=== PATIENT | male | born 1950 | race Caucasian/White ===

== ENCOUNTER 2020-02-27 17:19 | Inpatient (IN) | payer MEDICARE, OTHER, SELFPAY ==
[2020-02-27] VITALS (57 sets, daily range): BP systolic 65–131; BP diastolic 46–72; PULSE 70–87; RESP 9–22; TEMP 36.4; O2SAT 82–100; BMI 24.4
--- NOTE | 2020-02-27 | XRR_ITS ---
PROCEDURE INFORMATION: Exam: XR Chest, 2 Views Exam date and time: 02/28/2020 7:55 AM Age: 69 years old Clinical indication: Device placement; Patient HX: Chest tube-thoracic vent. Some bleeding around insertion; Additional info: Pneumothorax TECHNIQUE: Imaging protocol: XR of the chest Views: Portable recumbent coned right AP chest (excluding the left chest), and cross-table lateral views. COMPARISON: CR (CHEST, ) 02/27/2020 9:54 PM FINDINGS: Lungs: Increased small right lateral apical pleural effusion/hemothorax. Stable right upper lobe consolidation. Pleural space: Small anterior right pneumothorax. Heart/Mediastinum: Unremarkable as visualized. Bones/joints: Right thoracic vent stable position. XR/XR chest 2V* [id number] IMPRESSION: 1. Increased small right lateral apical pleural effusion/hemothorax. 2. Small anterior right pneumothorax. 3. Stable right upper lobe consolidation.
--- NOTE | 2020-02-27 17:19 | XRR_ITS ---
PROCEDURE INFORMATION: Exam: XR Chest, 1 View Exam date and time: 02/27/2020 5:42 PM Age: 69 years old Clinical indication: Device placement; Ett placement (vent status); Additional info: Intubated TECHNIQUE: Imaging protocol: XR of the chest Views: 1 view. COMPARISON: No relevant prior studies available. FINDINGS: Tubes, catheters and devices: Endotracheal tube terminates slightly above the gila. NG tube tip is not visualized appears to course below the diaphragm. Lungs: Bilateral airspace opacities, greatest in the right upper lobe. Pleural space: Small right pneumothorax. Heart/Mediastinum: No cardiomegaly. Bones/joints: No acute fracture. XR/XR chest 1V portable [id number] IMPRESSION: 1. Small right pneumothorax. 2. Right upper lobe atelectasis or other infiltrate.
[2020-02-27 17:25] LABS: Arterial Blood Gas Hematocrit 41.7 % (42-52); Base Excess ABG -15.6 mmol/L (-2.0-2.0); Blood Gas Allen Test Pos; Blood Gas Operator Identificat CAK; Blood Gas Sample Site Radial, left; Blood Gas Sample Type Arterial; HCO3 ABG 11.5 mmol/L (22-26); Oxygen Device VENT
[2020-02-27 17:26] LABS: ABG PH Result 7.18 (7.35-7.45)
[2020-02-27 17:30] LABS: Basophils # 0.1 10^3/uL (0.0-0.1); Basophils % 0.4 %; Eosinophils # 0.2 10^3/uL (0.0-0.8); Eosinophils % 0.6 %; Hematocrit 42.1 % (42.0-52.0); Hemoglobin 13.2 g/dL (11.7-16.6); Lymphocytes # 7.1 10^3/uL (0.8-4.8); Lymphocytes % 26.6 %; Mean Corpuscular HGB Conc 31.4 g/dL (30.0-36.0); Mean Corpuscular Hemoglobin 31.4 pg (28.0-34.0); Mean Platelet Volume 10.3 fL (7.4-10.4); Monocytes # 1.3 10^3/uL (0.2-0.9); Monocytes % 4.7 %; Neutrophils % 63.3 %; Nucleated Red Blood Cells % 0.1 %; Platelet Count 241 10^3/cmm (130-400); Red Blood Count 4.21 10^6/uL (4.1-5.3); Red Cell Distribution Width 12.1 % (12.1-15.1); White Blood Count 26.5 10^3/uL (4.0-10.0)
--- NOTE | 2020-02-27 17:41 | CTR_ITS ---
PROCEDURE INFORMATION: Exam: CT Head Without Contrast Exam date and time: 02/27/2020 5:44 PM Age: 69 years old Clinical indication: Other: Cardiac arrest/ cpr/ PT intubated; Additional info: Head injury TECHNIQUE: Imaging protocol: Computed tomography of the head without contrast. Sagittal and coronal reformatted images were created and reviewed. Radiation optimization: All CT scans at this facility use at least one of these dose optimization techniques: automated exposure control; mA and/or kV adjustment per patient size (includes targeted exams where dose is matched to clinical indication); or iterative reconstruction. COMPARISON: No relevant prior studies available. RADIATION DOSE METRICS: Total DLP (mGy-cm): 885.91 FINDINGS: Brain: No acute intracranial hemorrhage. No acute infarct. No intra-axial or extra-axial masses. Whiteside-white matter differentiation is preserved. No cerebral edema. No extra-axial fluid collections. No midline shift. No evidence for Chiari 1 malformation. Mild cerebral volume loss. Ventricles: No hydrocephalus. Bones/joints: Moderate right nasal septal deviation. Sinuses: Unremarkable as visualized. Mastoid air cells: Unremarkable as visualized. Orbits: Globes and lenses, extraocular muscles, and optic nerves are intact bilaterally. No acute intraorbital abnormality. Soft tissues: No acute abnormality of the extracranial soft tissues. CT/CT head wo con* [id number] IMPRESSION: 1. No acute abnormality of the brain. 2. Incidental/nonacute findings are listed in the report. Radiation Dose CTDIVOL = (mGy): DLP = 885.91 (mGy-cm)
[2020-02-27 17:56] LABS: Alanine Aminotransferase 79 U/L (0-41); Albumin Level 3.5 g/dL (3.5-5.2); Alkaline Phosphatase 133 IU/L (40-130); Blood Urea Nitrogen 16 mg/dL (8-23); Calcium 8.7 mg/dL (8.5-10.5); Carbon Dioxide 16 mmol/L (22-29); Chloride 105 mmol/L (98-107); Globulin 1.9 g/dL (1.3-4.6); Glucose 269 mg/dL (65-115); Magnesium 2.2 mg/dL (1.7-2.3); Osmolality Calculated 296 mOsm/kg (285-295); Sodium 140 mmol/L (136-145); Total Bilirubin 0.5 mg/dL (0.15-1.2); Total Protein 5.4 g/dL (6.6-8.7)
[2020-02-27 18:01] LABS: Anion Gap 22.5 (5-19); Aspartate Amino Transferase 117 U/L (0-40)
[2020-02-27 18:02] LABS: Potassium 3.5 mmol/L (3.5-5.1); Troponin(5th) Baseline 45 ng/L (0-15)
[2020-02-27 18:04] LABS: Slide Review Slide Review Perform
--- NOTE | 2020-02-27 18:05 | XACV_ITS ---
Exam Room: [facility] Ht: 183 cm Wt: 85 kg BSA: 2.08 m2 Gender: Male : 1950 Exam Priority: Routine Procedure(s): Procedure Description: Diagnostic procedure Procedure Description: PCI procedure Procedure Description: Left Heart Catheterization Procedure Description: Drug Eluting Coronary Stent Procedure Description: PTCA Procedure Description: Miscellaneous Procedure Description: Temporary Pacemaker Insertion Diagnostic Findings LM has 0% stenosis. LAD has 0% stenosis. CX has 0% stenosis. Distal Right Coronary Artery: Severe 100% stenosis, AIME: 0 flow. Coronary angiography shows right dominance. Interventional Findings Distal Right Coronary Artery: 100% stenosis treated with Unknown. 0% residual stenosis, AIME: 3 flow. Conclusions There is severe coronary artery disease with one vessel disease. Distal Right Coronary Artery was treated with . 69-year-old male with unknown downtime was brought in with V. fib arrest resuscitated and complicated with complete heart block paced externally, due to suspicion of head bleed his head was scan which did not show acute bleed, he was intubated and resuscitated in the ER. He was taken emergently to the [facility]. Temporary pacemaker was inserted. He was found to have 100% thrombotically occluded distal large size and caliber dominant RCA. It was treated with multiple balloon angioplasty and 2 overlapping 3.5 x15 and 3.5 x 12 mm drug-eluting stents postdilated at high YAIMA of 16 mmHg. Excellent angiographic result was achieved. AIME-3 flow was established at the end of the case. Through right groin approach after proper sterilization right common femoral vein was accessed. Temporary pacemaker was placed in the right ventricle. Patient was paced at heart rate of 80 bpm asynchronous with output of 10. Good capture was confirmed. 1. Left main normal2. LAD has luminal irregularity3. LCx is nondominant with luminal irregularity4. RCA is large in size and caliber dominant vessel with 100% thrombotically occluded in the distal segment before bifurcation it is the culprit vessel. Recommendations 1-Return to inpatient for close monitoring and routine cath care 2-Risk factor modification for secondary prevention 3-Statin and aspirin 81 mg life--long, if tolerated 4-Patient was pre-loaded with 600 mg of Plavix, continue Plavix 75mg p.o. daily for at least one year. We will assess at the end of one year again to continue if further or not 5-Continue optimal medical management, neurological assessment as per medicine, condition guarded 6-Follow up with Dr. Gilbert in four weeks and your primary care in 10 days . Interventional RX Recommendation: PCI w/o planned CABG Diagnostic RX Recommendation: PCI w/o planned CABG Clinical Evaluation EBL: 5mL-10mL Procedural Details Pre-Procedure Time Out. Identified patient by full name and date of as verbalized by the patient/guarantor. If H&P is completed, is and addenduem needed: N/A Emergent; Informed Consent not obtained due to time critical life threat; If yes, is the addendum complete: N/A Emergent; Informed Consent not obtained due to time critical life threat. Does the consent match the physician's order: N/A Emergent; Informed Consent not obtained due to time critical life threat. Accurate & Complete Informed Consent: N/A Emergent; Informed Consent not obtained due to time critical life threat. Inpatient/Outpatient History & Physical on Chart: N/A Emergent; Informed Consent not obtained due to time critical life threat. Visualize and Verify Site with Patient/Guarantor: N/A. Relevant Radiology Images available: N/A Emergent; Informed Consent not obtained due to time critical life threat. Physician notified. Equipment: 6F - Femoral. Cardiac Cath Pack. ACIST Manifold Kit Model BT 2000. Heparinized Saline (2 units/mL), 1000 mL bag. Kit, Micropuncture. Procedure started. bilateral groins was prepped with chloroprep then draped in the usual sterile fashion. Baseline sample Acquired. HR: 70 BPM. Patient arrived to concrete laborer on a ventilator and will be managed by respiratiory. pt being paced. Physician arrived. Physician scrubbed in. Immediate Pre-Procedure Time Out. Correct Patient: Yes; Correct Procedure: Yes; Correct Site: Yes; Correct Patient Position: Yes; Correct Supplies: Yes; Dried Flammable Prep: N/A Emergent; Informed Consent not obtained due to time critical life threat; Blood Products Available: N/A Emergent; Informed Consent not obtained due to time critical life threat;. Lidocaine 1% infiltrated to the right groin. pt on 75mcg fentanyl I.V. from ed. Venous access obtained with a micropuncture set. 6FR arrow sheath in venous access. temp pacemaker leads inserted. rate 80 output 10 sensitivity async. Marianne Celaya, FABRIC WORKER FOREMAN was relieved by RT Norbert as monitoring person. Arterial access obtained with micropuncture set. 6 swedish JR 4 SH guide catheter was inserted over the wire. Wheeler guidewire was advanced through the guide catheter to lesion in the distal RCA. Inflation number : 1 A AB TREK 2.50X12 RX BALLOON was prepped and advanced across the Dist RCA , then inflated to 8 YAIMA for 0:18 seconds. Inflation number: 2 The AB TREK 2.50X12 RX BALLOON was reinflated across the Dist RCA, to 14 YAIMA for 0:13 seconds. Inflation number: 3 The AB TREK 2.50X12 RX BALLOON was reinflated across the Dist RCA, to 16 YAIMA for 0:09 seconds. Inflation number: 4 The AB TREK 2.50X12 RX BALLOON was reinflated across the Dist RCA, to 16 YAIMA for 0:09 seconds. Balloon out. Inflation Number : 5 A MARY Drew DEBBIE 3.5X12 ROSY -Lot Number# [id number] exp date:09-15-2021 was prepped and advanced across the Dist RCA. The stent was deployed at 16 YAIMA for 0:30 seconds. Stent balloon out over wire. Results checked. Inflation Number : 6 A MARY Drew DEBBIE 3.5X15 ROSY -Lot Number# [id number] exp date: 08-29-2021 was prepped and advanced across the Dist RCA. The stent was deployed at 18 YAIMA for 0:20 seconds. Stent balloon and wire out. Guide catheter out. Dropped rate of temp pacer to 60 bpm. A 6 swedish JL4 catheter in over wire. Multiple views taken of left coronary artery. Catheter out. Sheath(s) sutured into position with 2-0 silk and sterile 4x4's and Op-site applied over the site. No oozing or signs and symptoms of hematoma noted. Arterial sheath flushed and connected to tranducer and pressure bag with heparinized saline. Post Procedure: Pulses reassessed and unchanged. PERRLA. Strong, equal hand drop hammer setter up bilaterally. No VTE prophylaxis required. Medication's Wasted: Heparin = 4000 units. Total IV fluids: 500 mL. Contrast type used: Visipaque 320 mgI/mL, 500 mL bottle. Contrast Material : Visipaque 147 ml. Complications: none. Estimated blood loss: 5mL-10mL. Procedure completed. Admit Source: Emergency department. A Suture was successful obtaining hemostatsis at the Right Femoral artery insertion site. [facility] Clinical Fraility Score: 2: Well. [facility] Machine Operator Indications: ACS <= 24 hours. Chest Pain Symptom Assessment: Typical Angina Symptoms. Cardiovascular Instability: Yes, if yes, STEMI. Post-op diagnosis: STEMI. PCI Indication: STEMI. Patient transferred by bed to ICU. Ventilator Settings: TV: 500, FI02: 100, Mode: AC, Rate: 16, PEEP: 6. Vital chart was stopped. Site: Right Femoral artery Sheath Size: 6 Fr Hemostasis Method: Suture Hemostasis Success: Successful Procedure Medications Start: 6:42 PM Stop: 6:42 PM Medication: Heparin Amount: 5000 units Route: I.V. Start: 6:49 PM Stop: 6:49 PM Medication: 0.9% Saline Amount: 500 ml Route: I.V. bolus Start: 6:52 PM Stop: 6:52 PM Medication: Heparin Amount: 5000 units Route: I.V. Start: 6:58 PM Stop: 6:58 PM Medication: Aggrastat 12.5 mg/250 mL Amount: 43 ml Route: I.V. bolus Start: 6:58 PM Stop: 6:58 PM Medication: Aggrastat 12.5 mg/250 mL Amount: 15.5 ml Route: I.V. drip Start: 7:05 PM Stop: 7:05 PM Medication: 0.9% Saline Amount: 150 ml/hr Route: I.VSunshine gilmore I, the attending physician, have reviewed and verified all procedure medications. Yes, all medications given per verbal order Report Signatures Finalized by:Gerda Gilbert MD on 02/27/2020 7:40:33 PM
--- NOTE | 2020-02-27 18:19 | P.CONIM_ITS ---
Providers/Reason For Consult Consulting Physican/Specialty*: Gerda Gilbert MD Reason for Consult*: Cardiac arrest with V. fib Attending Physician: Pernell Rodriguez MD History of Present Illness History of Present Illness Fermín Dodson is a 69 year old male past medical history not significant for any major medical problem as per friend who is accompanying the patient brought in to emergency room by EMS with V. fib arrest shocked multiple times intubated. He was also noted to be severely bradycardic with heart block therefore external pacing was initiated. According to patient's friend who is accompanying him he is from [place] and helping him moving furniture when all of a sudden he started having chest pain he thought it is a muscle pull. He got up from the couch and went into another room where he collapsed his friend approached him and saw him turning blue not breathing and posturing. He called 911 and started CPR on him. EMS found him to be in V. fib delivered multiple shocks. In the ER he was scanned to rule out head bleed currently neurologic status is unknown, he has medium sized pneumothorax treated in the ER with chest tube. We have been asked to see him. Patient currently is intubated and unresponsive. He has sluggishly moving pupils when unknown and guarded neurological status. He is stable blood pressure castillo. Due to paced rhythm cannot assess EKG. Since patient has V. fib documented arrest and bradycardic later requiring pacer we will proceed with temporary pacemaker and emergent left heart cath if needed intervention. No immediate relative is available, we are trying to contact them. Review of Systems General: Reports: ROS unobtainable due to endotracheal tube and ROS unobtainable due to medical condition (He is comatose. He was helping a friend to move some furniture including a large freezer and did not report any symptoms until he developed chest pain and thought he had pulled a muscle. He sat down on the couch, got up and walked into the other room and collapsed according to EMS who obtained a history from the friend.) Meds/Allergies Home Medications and Allergies Home Medications Medication Instructions Recorded Confirmed Last Taken Type No Known Home Medications 02/27/20 02/27/20 Unknown History Allergies Allergy/AdvReac Type Severity Reaction Status Date / Time No Known Allergies Allergy Verified 02/27/20 17:41 Current Medications Current Medications Generic Name Dose Route Start Last Admin Trade Name Freq PRN Reason Stop Dose Admin Fentanyl 1,000 mcg/ Sodium 100 mls @ 0 mls/hr 02/27/20 17:30 02/27/20 17:47 Chloride IV 75 mcg/hr .Q0M ANSELMO 7.5 mls/hr Titration Protocol Per Protocol PFSH Acute PFSH: Medical History Depression Hyperlipidemia Surgical History H/O hernia repair Vitals/I&O/Wt Last Vital Signs Pulse 72 02/27/20 17:19 Resp 17 02/27/20 17:25 BP 131/54 02/27/20 17:19 Pulse Ox 99 02/27/20 17:19 02/27/20 02/27/20 02/27/20 06:59 14:59 22:59 Intake Total 1.667 / 1.667 Balance 1.667 / 1.667 Weight last 48 hrs Weight 180 lb Physical Exam Narrative: EXAM NARRATIVE: GENERAL: Patient unconscious intubated with sluggishly reacting pupils bilaterally nECK: No jugular vein distension. HEENT: No cyanosis. No icterus. No pallor. Bruise on the HEART: Regular S1 and S2. No murmur, rub or gallop. LUNGS: Clear to auscultate bilaterally. ABDOMEN: Soft, nondistended. Positive bowel sounds. No guarding, rebound or tenderness. CENTRAL NERVOUS SYSTEM: Cannot assess neurologically patient is unconscious and sedated on vent EXTREMITIES: Lower extremities without edema bilaterally. Urinary Catheter Management^: River: Cath Placed During This Visit: yes Reason for Continuing Indwelling Catheter: Other Urinary Catheter Date of Insertion: 02/27/20 Urinary Catheter Time of Insertion: 17:32 A&P Assessment and plan (1) Cardiac arrest with ventricular fibrillation: Patient will be taken immediately to [facility] for left heart cath/PCI if indicated. Further plan will be advised. Status: Acute (2) Symptomatic bradycardia: We will proceed with temporary pacemaker Status: Acute Consult Attestations Medical Necessity Statement: I am expecting his stay to cross more than 2 midnight Coding Level of Care Code New Pt Acute Hatchery Attendant for Chg Fwd Patient Type New History Comprehensive Exam Comprehensive Medical Decision Making High Complexity Diagnoses Cardiac arrest with ventricular fibrillation I46.9; I49.01 Symptomatic bradycardia R00.1
--- NOTE | 2020-02-27 18:21 | XRR_ITS ---
PROCEDURE INFORMATION: Exam: XR Chest, 1 View Exam date and time: 02/27/2020 6:26 PM Age: 69 years old Clinical indication: Device placement; Chest tube; Additional info: Chest tube placement TECHNIQUE: Imaging protocol: XR of the chest Views: 1 view. COMPARISON: CR XR chest 1V portable [id number] 02/27/2020 5:29 PM FINDINGS: Tubes, catheters and devices: Endotracheal tube terminates above the level of the gila. NG tube terminates in the stomach. Monitor leads project over the chest wall. Lungs: Right upper lobe consolidation versus atelectasis, no change. Pleural space: Status post right chest tube placement interval decrease in previously noted small right pneumothorax. Heart/Mediastinum: No cardiomegaly. Bones/joints: No acute fracture. XR/XR chest 1V portable [id number] IMPRESSION: Status post right chest tube placement interval decrease in previously noted small right pneumothorax.
--- NOTE | 2020-02-27 18:41 | P.HP_ITS ---
Providers/Chief Complaint Admitting Physician: Pernell Rodriguez MD Chief Complaint: POST CODE History of Present Illness Fermín Dodson is a 69 year old male with a past medical history of elevated blood sugars, hyperlipidemia, nephropathy, depression who presents to [facility] due to cardiac arrest. Most of the history was obtained by patient's friend Tino [phone] who witnessed the episode, and patient's uli [phone] according to patient's friend Tino, patient lives in [place], currently is having marital problems, there is talk of divorce, every year he visits Tino in [place], patient a few days ago drove from [place], stopping for 1 night, drove to [place], he has been hanging out with Tino. Tino says this morning, Fermín was helping him move some furniture items, move a fridge, they are able to move without any problem, he came back to [facility] place when Fermín started to complain of some anterior chest pain, he thought he might of pulled a muscle while moving the fridge, no shortness of breath, no lightheadedness, no dizziness, no radiation, it subsequently went away, and he thought nothing of it, they hung out the living room, there is nothing out of the ordinary, Tino went into the kitchen, when he heard a thump, he found Fermín on the floor, blue, cyanotic, nonresponsive, he called 911, who instructed him to start CPR Fermín thinks that this might of been between 4 30-5, his not sure exactly when, EMS arrived, where he was found to have V. fib, I was told that CPR was performed for roughly 20 minutes, on arrival he was found to have V. fib, he was shocked a total of 7 times, received epi 5 times, received amiodarone twice, last for sinus bradycardia externally placed and roughly 455 he was breathing on his own for 4 minutes 3 ET tube on arrival, his pH was 7.18, creatinine 1.9, transaminitis, white blood cell count 26.5, glucose 269, initial chest x-ray showed small right apical pneumothorax, patient had a chest tube placed by ER physician, Dr. Palma from cardiology was consulted plan is to take the patient to cardiac catheterization lab and plans for temporary pacing. I spoke to patient's , who states that patient does not have any significant cardiac history, no history of strokes, no history of COPD, he does have elevated blood sugars, but no diabetes, he does have nephropathy but no hypertension, no diabetes, his regular physician does a EKG on him yearly which is normal, no history of stress test, no history of cardiac catheterization, does have a family history of CAD in both his parents,, both his parents from CAD and its complications, has a sister in [place]. According to patient's , patient has been quite depressed recently, quite withdrawn, does not do a lot of physical activity, has been complaining of more shortness of breath recently, has been complaining of some left shoulder pain, which he attributed to physical labor related. According to his , no reported chest pain per se, no ER visits for chest pain, no hospitalizations, he quit smoking 20 years ago, smoked for a few years, timeline is unknown, no history of drug use, nothing out of the ordinary for the last few days before he left on his trip. Review of Systems General: Reports: ROS unobtainable due to endotracheal tube Medications/Allergies Home Medications Medication Instructions Recorded Confirmed Last Taken Type No Known Home Medications 02/27/20 02/27/20 Unknown History Allergies Allergy/AdvReac Type Severity Reaction Status Date / Time No Known Allergies Allergy Verified 02/27/20 17:41 PFSH Acute PFSH: Medical History (Updated 02/27/20 @ 19:05 by Pernell Rodriguez MD) Depression Hyperlipidemia Surgical History (Updated 02/27/20 @ 19:03 by Pernell Rodriguez MD) H/O hernia repair Vitals/I&O/Wt Last Vital Signs Pulse 72 02/27/20 17:19 Resp 17 02/27/20 17:25 BP 131/54 02/27/20 17:19 Pulse Ox 99 02/27/20 17:19 02/27/20 02/27/20 02/27/20 06:59 14:59 22:59 Intake Total 1.667 / 1.667 Balance 1.667 / 1.667 Weight last 48 hrs Weight 81.647 kg Physical Exam Urinary Catheter Management^: River: Cath Placed During This Visit: yes Reason for Continuing Indwelling Catheter: Other Urinary Catheter Date of Insertion: 02/27/20 Urinary Catheter Time of Insertion: 17:32 Data : 02/27/20 17:24 02/27/20 17:24 A&P Assessment and plan (1) Cardiac arrest with ventricular fibrillation: -Suspicious for coronary event -Other considerations would be for a pulmonary embolism given his recent travel -Patient will undergo cardiac catheterization and temporary pacemaker placement by Dr. Pink -Currently intubated, sedated on propofol and fentanyl -Minimize PEEP, minimize FiO2 -Right chest tube in place -Heparin for DVT prophylaxis -Protonix for GI prophylaxis -Neuro checks, daily neurologic exams monitor vitals -Monitor for cerebral edema, initial CT of the head no acute findings -I spoke to patient's , currently patient is a full code, but according to patient's he would not want any life-sustaining measures if his likelihood of meaningful recovery would be poor -Further recommendations based on cardiac interventions -Currently patient status is critical, prognosis is guarded All parties were made aware, including , patient's friend, advised to let all family members know Status: Acute (2) Acute respiratory failure: Status: Acute (3) Pneumothorax: Right chest tube in place Status: Acute Qualifiers: Encounter type: initial encounter Pneumothorax type: traumatic Qualified Code(s): S27.0XXA - Traumatic pneumothorax, initial encounter (4) Symptomatic bradycardia: Will have pacemaker in place Status: Acute (5) Hyperlipidemia: Continue aspirin statin Status: Acute (6) Elevated blood sugar: We will check hemoglobin A1c Status: Acute (7) Depression: Status: Acute (8) Leukocytosis: Likely active Status: Acute (9) Acidemia: Will give 1 amp of bicarb, check lactic acid Status: Acute (10) Acute kidney injury: Creatinine up to 1.9, will receive contrast, start gentle hydration, monitor urine output, River catheter placed, monitor creatinine Status: Acute (11) Transaminitis: Status: Acute Attestations Medical Necessity Statement*: Patient requires hospitalization, inpatient, greater than 2 midnights, for cardiac arrest, acute respiratory failure, pneumothorax Coding Level of Care Code Acute Engineering Director for liz [place] Diagnoses Cardiac arrest with ventricular fibrillation I46.9; I49.01 Acute respiratory failure J96.00 Pneumothorax S27.0XXA Encounter type: initial encounter Pneumothorax type: traumatic Symptomatic bradycardia R00.1 Hyperlipidemia E78.5 Elevated blood sugar R73.9 Depression F32.9 Leukocytosis D72.829 Acidemia E87.2 Acute kidney injury N17.9 Transaminitis R74.0
--- NOTE | 2020-02-27 18:46 | ED_ITS ---
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 Patient started having severe chest pain and then become unresponsive. This happened and family member called EMS who arrived roughly 20 minutes later. When EMS arrived they state that he was in V. fib. Patient was shocked 7 times and then had spontaneous circulation. Patient was quite bradycardic they state heart rates in the 20s and they started external pacing. Patient still has external pacemaker going and is intubated. Patient's blood pressure here is normal. Review of Systems General: Reports: ROS unobtainable due to medical condition Physical Exam Const: COMMON NORMALS: negative for patient oriented x3 and negative for alert GENERAL APPEARANCE: ill appearing OTHER: Intubated not responding HENMT: COMMON NORMALS: atraumatic HEAD & SCALP: atraumatic Eye: COMMON NORMALS: Equal, round and reactive pupils present PUPIL: Yes Equal, round and reactive pupils present Neck/C-Spine: COMMON NORMALS: supple Chest: COMMONS NORMALS: normal inspection of the chest and normal palpation of entire chest wall Resp: OTHER: Patient intubated with good breath sounds bilaterally Cardio: OTHER: Patient is currently being paced with external pacemaker GI: COMMON NORMALS: Soft to palpation and no masses PALPATION: Yes Soft to palpation Back/Pelvis: COMMON NORMALS: thoracic and lumbar spine normal to inspection Extremity: COMMON NORMALS: normal to inspection Neuro: COMMON NORMALS: negative for patient oriented x3 SENSORIUM/ORIENTATION: No alert Skin: COMMON NORMALS: no rashes or lesions noted GENERAL SKIN EXAM: no rashes or lesions noted Course Vital Signs: Vital signs: Vital Signs Pulse Rate 72 02/27/20 17:19 Respiratory Rate 17 02/27/20 17:25 Blood Pressure 131/54 02/27/20 17:19 Pulse Oximetry 99 02/27/20 17:19 MDM - General Adult MDM Narrative: Medical decision making narrative: Patient presents here after a V. fib arrest. Patient is being paced here as he was bradycardic. I spoke to Dr. Palma who is taking [facility] to [facility]. Patient did have a small pneumothorax likely from chest compressions that I placed a thoracic vent. Patient's head CT here is normal as well. Patient transferred to [facility]. Lab Data: Labs: Lab Results 02/27/20 02/27/20 02/27/20 Range/Units 17:14 17:24 17:24 WBC 26.5 H (4.0-10.0) 10^3/ uL RBC 4.21 (4.1-5.3) 10^6/u L Hgb 13.2 (11.7-16.6) g/dL Hct 42.1 (42.0-52.0) % MCV 100.0 H (80-94) fL MCH 31.4 (28.0-34.0) pg MCHC 31.4 (30.0-36.0) g/dL RDW 12.1 (12.1-15.1) % Plt Count 241 (130-400) 10^3/c mm MPV 10.3 (7.4-10.4) fL Neut % (Auto) 63.3 % Lymph % (Auto) 26.6 % [place] % (Auto) 4.7 % Eos % (Auto) 0.6 % Baso % (Auto) 0.4 % Neut # (Auto) 16.80 H (1.8-7.7) 10^3/u L Lymph # (Auto) 7.1 H (0.8-4.8) 10^3/u L [place] # (Auto) 1.3 H (0.2-0.9) 10^3/u L Eos # (Auto) 0.2 (0.0-0.8) 10^3/u L Baso # (Auto) 0.1 (0.0-0.1) 10^3/u L Nucleated RBC % (a uto) 0.1 % Nucleated RBCs # 0.0 /100WBC PT 15.60 H (12.1-14.9) SECO NDS INR 1.20 (0.8-1.2) Specimen Type Arterial Sample Site Radial, left ABG pH 7.18 L* (7.35-7.45) ABG pCO2 31.0 L (35-45) mmHg ABG pO2 447.0 H (80.0-100.0) mmH g ABG HCO3 11.5 L (22-26) mmol/L ABG Base Excess -15.6 L (-2.0-2.0) mmol/ L Star Test Pos Hematocrit 41.7 L (42-52) % O2 Delivery Device Vent FiO2 100.0 % Tidal Volume 0.50 PEEP 8.0 cmH20 Stereo Equipment Installer ID Cak Sodium (136-145) mmol/L Potassium (3.5-5.1) mmol/L Chloride (98-107) mmol/L Carbon Dioxide (22-29) mmol/L Anion Gap (5-19) BUN (8-23) mg/dL Creatinine (0.7-1.2) mg/dL GFR Calculation Glucose (65-115) mg/dL Calculated Osmolal ity (285-295) mOsm/k g Calcium (8.5-10.5) mg/dL Magnesium (1.7-2.3) mg/dL Total Bilirubin (0.15-1.2) mg/dL AST (0-40) U/L ALT (0-41) U/L Alkaline Phosphata se (40-130) IU/L Troponin T Baselin e (0-15) ng/L Total Protein (6.6-8.7) g/dL Albumin (3.5-5.2) g/dL Globulin (1.3-4.6) g/dL 02/27/20 02/27/20 Range/Units 17:24 17:24 WBC (4.0-10.0) 10^3/ uL RBC (4.1-5.3) 10^6/u L Hgb (11.7-16.6) g/dL Hct (42.0-52.0) % MCV (80-94) fL MCH (28.0-34.0) pg MCHC (30.0-36.0) g/dL RDW (12.1-15.1) % Plt Count (130-400) 10^3/c mm MPV (7.4-10.4) fL Neut % (Auto) % Lymph % (Auto) % [place] % (Auto) % Eos % (Auto) % Baso % (Auto) % Neut # (Auto) (1.8-7.7) 10^3/u L Lymph # (Auto) (0.8-4.8) 10^3/u L [place] # (Auto) (0.2-0.9) 10^3/u L Eos # (Auto) (0.0-0.8) 10^3/u L Baso # (Auto) (0.0-0.1) 10^3/u L Nucleated RBC % (a uto) % Nucleated RBCs # /100WBC PT (12.1-14.9) SECO NDS INR (0.8-1.2) Specimen Type Sample Site ABG pH (7.35-7.45) ABG pCO2 (35-45) mmHg ABG pO2 (80.0-100.0) mmH g ABG HCO3 (22-26) mmol/L ABG Base Excess (-2.0-2.0) mmol/ L Star Test Hematocrit (42-52) % O2 Delivery Device FiO2 % Tidal Volume PEEP cmH20 Stereo Equipment Installer ID Sodium 140 (136-145) mmol/L Potassium 3.5 (3.5-5.1) mmol/L Chloride 105 (98-107) mmol/L Carbon Dioxide 16 L (22-29) mmol/L Anion Gap 22.5 H (5-19) BUN 16 (8-23) mg/dL Creatinine 1.9 H (0.7-1.2) mg/dL GFR Calculation Not Reportable Glucose 269 H (65-115) mg/dL Calculated Osmolal ity 296 H (285-295) mOsm/k g Calcium 8.7 (8.5-10.5) mg/dL Magnesium 2.2 (1.7-2.3) mg/dL Total Bilirubin 0.5 (0.15-1.2) mg/dL AST 117 H (0-40) U/L ALT 79 H (0-41) U/L Alkaline Phosphata se 133 H (40-130) IU/L Troponin T Baselin e 45 H (0-15) ng/L Total Protein 5.4 L (6.6-8.7) g/dL Albumin 3.5 (3.5-5.2) g/dL Globulin 1.9 (1.3-4.6) g/dL Imaging Data^: CT Head: Attestation: I personally reviewed and interpreted this imaging study as follows: Radiologist's impression: [address] [address] [address] Scan Report Signed Patient: Fermín Dodson Unit #: [id number] : 1950 Age/Sex: 69 / M ADM Date: 02/27/20 Loc: ICU Room/Bed: [place] [address]: Pernell Rodriguez MD Ordering Provider/Ordering MD: Lee Gurrola MD Date of Service: 02/27/20 Procedure(s): CT head wo con* [id number] Accession Number(s): [id number] Report Number: [id number] PROCEDURE INFORMATION: Exam: CT Head Without Contrast Exam date and time: 02/27/2020 5:44 PM Age: 69 years old Clinical indication: Other: Cardiac arrest/ cpr/ PT intubated; Additional info: Head injury TECHNIQUE: Imaging protocol: Computed tomography of the head without contrast. Sagittal and coronal reformatted images were created and reviewed. Radiation optimization: All CT scans at this facility use at least one of these dose optimization techniques: automated exposure control; mA and/or kV adjustment per patient size (includes targeted exams where dose is matched to clinical indication); or iterative reconstruction. COMPARISON: No relevant prior studies available. RADIATION DOSE METRICS: Total DLP (mGy-cm): 885.91 FINDINGS: Brain: No acute intracranial hemorrhage. No acute infarct. No intra-axial or extra-axial masses. Whiteside-white matter differentiation is preserved. No cerebral edema. No extra-axial fluid collections. No midline shift. No evidence for Chiari 1 malformation. Mild cerebral volume loss. Ventricles: No hydrocephalus. Bones/joints: Moderate right nasal septal deviation. Sinuses: Unremarkable as visualized. Mastoid air cells: Unremarkable as visualized. Orbits: Globes and lenses, extraocular muscles, and optic nerves are intact bilaterally. No acute intraorbital abnormality. Soft tissues: No acute abnormality of the extracranial soft tissues. CT/CT head wo con* [id number] IMPRESSION: 1. No acute abnormality of the brain. 2. Incidental/nonacute findings are listed in the report. CXR: My impression: ET tube in correct placement. Sided pneumothorax noted. Critical Care Time Critical Care Time: Critical Care Time: Yes Total Critical Care Time: 36 Attestation: This case had a high probability of a clinically significant, sudden, or life threatening deterioration of this patient's condition which required my full and direct attention, intervention and personal management. 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
--- NOTE | 2020-02-27 19:14 | XRR_ITS ---
PROCEDURE INFORMATION: Exam: XR Chest, 1 View Exam date and time: 02/27/2020 7:50 PM Age: 69 years old Clinical indication: Device placement; Other: Post thoracic vent TECHNIQUE: Imaging protocol: XR of the chest Views: 1 view. COMPARISON: CR XR chest 1V portable [id number] 02/27/2020 6:08 PM FINDINGS: Tubes, catheters and devices: Right chest tube is unchanged. Endotracheal tube terminates above the level of the gila. NG tube terminates in the stomach. Lungs: Persistent right upper lobe airspace opacities, no change. Minimal left upper lobe and left perihilar opacities, no change. Pleural space: Persistent small right pneumothorax, no change. Heart/Mediastinum: No cardiomegaly. Bones/joints: No acute fracture. XR/XR chest 1V portable [id number] IMPRESSION: Right chest tube is unchanged. Persistent small right pneumothorax, no change.
--- NOTE | 2020-02-27 19:20 | ECG_ITS ---
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 Measurements Intervals [place] Rate: 74 P: 28 DC: 203 QRS: 9 QRSD: 145 T: 5 QT: 453 QTc: 505 Interpretive Statements SINUS RHYTHM RIGHT BUNDLE BRANCH BLOCK [120+ ms QRS DURATION, UPRIGHT V1, 40+ ms S IN I/aVL/V4/V5/V6] No previous ECG available for comparison Electronically Signed On 02-27-2020 21:15:07 CDT by Susanna Calderon M.D. [email or web address] [place].[email or web address]/store/[id number]
[2020-02-27] MEDS: pantoprazole 40 mg SDV IVP (19:52)
[2020-02-27] MEDS: sodium chloride 0.9% 1,000 ML 75 ML IV (19:52)
[2020-02-27] MEDS: sodium bicarbonate 8.4% 1 mEq/mL 50mL Syr 50 MEQ IVP (19:52)
[2020-02-27] MEDS: clopidogrel 300 mg Tablet 600 MG PO (19:53)
[2020-02-27 20:03] LABS: Estmated Average Glucose 117; Hemoglobin A1C 5.7 % (4.0-6.0)
[2020-02-27 20:10] LABS: Lactate (Lactic Acid level) 7.2 mmol/L (0.5-2.2)
[2020-02-27 20:13] LABS: Troponin 5 2HR 664.3 ng/L (0-15); Troponin 5 2HR Delta 619.3 ABS# (0-10)
--- NOTE | 2020-02-27 20:17 | P.EN_ITS ---
Event Note Event Note: Patient seen on arrival to the ICU from the Assistant Program Manager. He is intubated and sedated on a fentanyl drip presently. He is not on any pressors. Manual blood pressures are reading 120 systolic heart rate is at 70. Pacemaker has been turned off. Discussed the case briefly with Assistant Program Manager nurse and Dr. Palma. He has a thoracic vent in place in the right upper chest. There is some blood drainage from it. He is on tirofiban presently and had received heparin in the emergency room. Hemoglobin around 530 was 13. Platelets were 241. According to nursing staff there was no water in the Pleur-evac. This was corrected and the Pleur-evac was hooked up. No air leak noted. A stat portable chest x-ray done at my instruction continues to show a pneumothorax in the right apex per my interpretation. May be slightly enlarged from initial chest x-ray done in the emergency room but otherwise similar appearance. Chest x-ray also evidence of pulmonary edema, particularly on the right side but noted bilaterally. No effusion noted at the base in a supine film. Lactic acid level was recently collected and is elevated at 7.2 which is not unexpected under the circumstances. Suspect secondary to acute cardiac arrest. Pneumothorax is felt to be from CPR administered in the field. Looking at his medication list, it does not appear that he has not had any Lasix to date. Creatinine is 1.9. Am going to go on and order 40 mg of Lasix x1 dose. He has urine noted in River bag at the moment. Last ABG was at 5:00. Plan to order repeat once he has settled down a bit here in the ICU. He remains on 100% FiO2 with tidal volume of 500, rate of 16 and 6 of PEEP. Saturations are 100%. I will go on and decrease FiO2 to 90%. Plan to repeat chest x-ray in 2 hours. Multiple other labs that have been drawn within the last half an hour that are still pending. We will follow these up. On my current examination, patient's pupils are equally reactive. Pulse is 75. Blood pressure for the art line is 108/53 oxygen saturation 100% on 90% FiO2 with respiratory rate at the set rate of 16. Breath sounds are noted bilaterally but slightly decreased at the apices on the right comparatively. There are Rales noted primarily on the right, no wheezes. Abdomen is soft without any mottling noted. Thoracic vent is in place in the right upper chest. Dressing is covering the entire right lower quadrant extending into the right groin which was the site of cardiac catheterization. Pulses are palpable in the right dorsalis pedis with brisk capillary refill noted at both great toes. There is still an IO noted in the right leg which I have asked to be removed. He has 3 other peripheral IVs. River catheter is in place. On at least one occasion he had what looked to be posturing with stimulation but I have not been able to reproduce that. Case was reviewed with Dr. Trevino by telephone and again with cardiology and cardiac catheterization nurse upon arrival from Assistant Program Manager. I have also discussed with both patient's ICU nurse tonight in the ICU charge nurse katharina. Event Notes Attestations Time Spent in Patient Care: Greater than 35 minutes 45 additional minutes in care
[2020-02-27 20:19] LABS: NT Pro B Type Natriuretic Pept 289 pg/mL (0-125); Procalcitonin 0.33 ng/mL (0-0.5)
[2020-02-27 20:30] LABS: C Reactive Protein 6.3 mg/L (0.0-4.9); Chol HDL Ratio 3.81 mg/dL (1.0-5.00); Cholesterol 164 mg/dL (0-200); HDL Cholesterol 43 mg/dL (60-100); LDL Cholesterol Calculated 100 mg/dL (50-129); LDL HDL Ratio 2.33 RATIO (0.00-3.22); Magnesium 1.8 mg/dL (1.7-2.3); Phosphorus 4.8 mg/dL (2.5-4.5); Triglycerides 105 mg/dL (0-150)
[2020-02-27 20:44] LABS: INR 1.39 (0.8-1.2)
[2020-02-27 20:45] LABS: Erythrocyte Sedimentation Rate 9 mm/hr (0-10)
[2020-02-27 20:53] LABS: ABG PCO2 33.6 mmHg (35-45); ABG PH Result 7.32 (7.35-7.45); Arterial Blood Gas Hematocrit 36.4 % (42-52); Base Excess ABG -7.7 mmol/L (-2.0-2.0); Blood Gas Sample Site ARTLINE; Blood Gas Sample Type Arterial; HCO3 ABG 17.5 mmol/L (22-26); Oxygen Device VENT
[2020-02-27] MEDS: FUROsemide 10 mg/mL SDV 4mL 40 MG IVP (21:01)
[2020-02-27] MEDS: atorvastatin 40 mg Tablet 80 MG PO (21:02)
--- NOTE | 2020-02-27 21:30 | PC.NURSE ---
EMS Fentanyl wasted Henrik,RN wasted 55ml of fentanyl. Witnessed by Steph.
--- NOTE | 2020-02-27 22:00 | XRR_ITS ---
PROCEDURE INFORMATION: Exam: XR Chest, 1 View Exam date and time: 02/27/2020 9:25 PM Age: 69 years old Clinical indication: Device placement; Chest tube; Additional info: Pneumothoras TECHNIQUE: Imaging protocol: XR of the chest Views: 1 view. COMPARISON: CR XR chest 1V portable [id number] 02/27/2020 7:40 PM FINDINGS: Tubes, catheters and devices: Endotracheal tube tip 3.4 cm above the gila. Enteric tube tip extending below the left diaphragm off the field of view. Lungs: Right upper lobe atelectasis versus infiltrate. Pleural space: Right-sided chest tube with tip directed inferiorly, small residual pneumothorax measuring up to 18 mm is suspected. Heart/Mediastinum: Unremarkable. No cardiomegaly. Bones/joints: Unremarkable. XR/XR chest 1V portable [id number] IMPRESSION: 1. Endotracheal tube tip 3.4 cm above the gila. 2. Enteric tube tip extending below the left diaphragm off the field of view. 3. Right-sided chest tube with tip directed inferiorly, small residual pneumothorax measuring up to 18 mm is suspected. 4. Right upper lobe atelectasis versus infiltrate.
[2020-02-27 22:11] LABS: Partial Thromboplastin Time > 250.0 SECONDS (23.9-36.7)
--- NOTE | 2020-02-27 23:20 | ECG_ITS ---
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 Measurements Intervals [place] Rate: 89 P: 3 TN: 172 QRS: -69 QRSD: 122 T: -24 QT: 364 QTc: 445 Interpretive Statements SINUS RHYTHM RIGHT BUNDLE BRANCH BLOCK [120+ ms QRS DURATION, UPRIGHT V1, 40+ ms S IN I/aVL/V4/V5/V6] LEFT ANTERIOR FASCICULAR BLOCK [QRS AXIS <= -45, QR IN I, RS IN II] Compared to ECG 02/27/2020 20:59:12 Left anterior fascicular block now present Electronically Signed On 02-29-2020 0:32:27 CDT by Aissatou Alvarado M.D. [email or web address]/store/[id number]
[2020-02-27] MEDS: LORazepam 2 mg/mL INJ 1 mL 1 MG IVP (23:21)
--- NOTE | 2020-02-27 23:46 | PM.PN ---
Subjective Subjective: Interval history: I was called by the nursing staff from the ICU patient is bleeding around the right groin sheath. He is also hypotensive on Levophed. Systolic blood pressure around 70-80. He has also shown posturing from time to time. Vitals/I&O/Wt Last Vital Signs Temp 97.6 F 02/27/20 20:00 Pulse 73 02/27/20 20:20 Resp 16 02/27/20 20:00 BP 104/65 02/27/20 20:20 Pulse Ox 99 02/27/20 20:20 02/27/20 02/27/20 02/28/20 14:59 22:59 06:59 Intake Total 68.950 / 68.950 Output Total 550 / 550 Balance -481.050 / -481.050 Weight last 48 hrs Weight 180 lb Physical Exam Narrative: EXAM NARRATIVE: GENERAL: Patient unconscious intubated with not reacting pupils nECK: No jugular vein distension. HEENT: No cyanosis. No icterus. Mild pallor. Right groin bruising no hematoma oozing of blood around the sheath with saturation of 2-3 cotton pad HEART: Regular S1 and S2. No murmur, rub or gallop. LUNGS: Decreased breath sounds on the right good air entry in the left ABDOMEN: Soft, nondistended. CENTRAL NERVOUS SYSTEM: Cannot assess neurologically patient is intubated sedated has occasional posturing EXTREMITIES: Lower extremities without edema bilaterally. Dopplerable pulse Urinary Catheter Management^: River: Cath Placed During This Visit: yes Reason for Continuing Indwelling Catheter: Accurate Measurement of Urinary Output in Critically Ill Patients Urinary Catheter Date of Insertion: 02/27/20 Urinary Catheter Time of Insertion: 17:32 Data : 02/27/20 17:24 02/27/20 17:24 A&P Assessment and plan (1) Cardiac arrest with ventricular fibrillation: Status post 2 overlapping drug-eluting stent to distal RCA for thrombotic occlusion perhaps the cause of his V. fib arrest. Post revascularization in it cardiac rhythm was restored patient was using backup pacemaker occasionally which was dropped down to 60 Status: Acute (2) Symptomatic bradycardia: Status post temporary pacemaker in place, bradycardia has improved Status: Acute (3) Shock: Could be multifactorial including cardiogenic secondary to RV infarct, bedside echo showed left ventricle function at least moderate 45 to 50% in limited views with mildly dilated RV, no pericardial effusion, pleural effusion visualized. I replaced right groin arterial sheath with 7 Frisian which stop the oozing around the sheath. Will check CBC PT/INR. Vasopressin will be added. IV fluid bolus 500 mL followed by 200 mL/h. If he requires, dobutamine for RV infarct can be used. Patient condition is guarded from neurological viewpoint as his down time was not well established, next 24 hours critical regarding determination of anoxic brain injury. He has already postures many times. We will continue to manage him aggressively. Further plan will be advised as per progress of the patient. I have spoken to the patient's friend no relative is available. I was told that Dr. Gimenez has spoken to his . Status: Acute Attestations Medical Necessity Statement*: Patient require continuation hospitalization for above defined care. Time Spent in Patient Care: Greater than 35 minutes Critical Care Time: Critical Care Time (min): 30 Coding Level of Care Code Established Pt Acute Retail Sales Associate Seasonal for g Fwd Patient Type Established History Comprehensive Exam Comprehensive Medical Decision Making High Complexity Diagnoses Cardiac arrest with ventricular fibrillation I46.9; I49.01 Symptomatic bradycardia R00.1 Shock R57.9
[2020-02-27 23:55] LABS: Basophils % 0.2 %; Hematocrit 34.6 % (42.0-52.0); Hemoglobin 11.6 g/dL (11.7-16.6); Lymphocytes % 4.1 %; Mean Corpuscular HGB Conc 33.5 g/dL (30.0-36.0); Mean Corpuscular Hemoglobin 32.9 pg (28.0-34.0); Monocytes # 1.5 10^3/uL (0.2-0.9); Monocytes % 6.1 %; Neutrophils # 21.75 10^3/uL (1.8-7.7); Neutrophils % 88.8 %; Nucleated Red Blood Cells % 0 %; Platelet Count 261 10^3/cmm (130-400); Red Blood Count 3.53 10^6/uL (4.1-5.3); Red Cell Distribution Width 12.4 % (12.1-15.1); White Blood Count 24.5 10^3/uL (4.0-10.0)
[2020-02-28] VITALS (126 sets, daily range): BP systolic 61–141; BP diastolic 37–80; PULSE 75–130; RESP 16–25; TEMP 36.6–37.5; O2SAT 87–100
[2020-02-28 00:07] LABS: Troponin 5 6HR 1613 ng/L (0-15); Troponin 5 6HR Delta 1568 ng/L (0-12)
[2020-02-28] MEDS: sodium chloride 0.9% 250 ML IV (00:20)
[2020-02-28 00:39] LABS: Thyroid Stimulating Hormone 2.25 uIU/mL (0.27-4.20)
--- NOTE | 2020-02-28 00:53 | PC.NURSE ---
Summary of care from [id number] Rcd patient from CHRIS Ramirez. PT intubated and sedated on 75mcg/hr. right thoracic vent in place, nurse added 20ml of water to drainage system and connected to suction. Chest tube draining and no air leaks present. small raise in skin around chest tube. no leak noted by . STAT order for Xray to confirm placement. Right femoral venous and artery sheath in place. Both lines secured with dressing. Slight bloody oozing noted on 4X4s under dressing. no hematoma present on admission. River catheter in place and draining urine. OG in place and clamped off. bilateral radial pulses of 2+ slightly diminished and bilateral dorsal pedial pulses of 1+ diminished. pulses marked. patient noted to have non-purposeful movement/jerking intermittently. pupils sluggish but equal and reactive to light. [address] of pt vital signs. HR:76 BP:78/53. verbal order for Levophed. 2214 notified of critical lab value. PTT greater than 250. Nurse entered room to evaluate sheaths. Bright red blood noted to be coming around the arterial sheath. Small hematoma noted around sheath. pressure held above sheath and called at 2224. informed that patient was having bleeding, critical lab value, vital signs, medications currently running. Verbal order to redress sheath with pressure dressing and continue to monitor patient/site. nurse not able to palpate right dorsal pedial pulse. Doppler used to evaluated pulse and still not present. toes noted to be cooler and pale in color. 2247 Call to and informed that pt bleeding is not able to control, hematoma has gotten bigger, pulses unable to be found in right foot. at bedside. New arterial sheath placed, STAT labs draw, STAT echo ultrasound ordered. Positive blood flow to right lower extremity by ultrasound. Verbal order by to start vasopressin, Dobutamine if vasopressin does not help. Verbal order for 1MG ativan and Keppra IV for pts non-purposeful movement. sheaths redressed with clear dressing, hematoma marked. will continue to monitor patient.
[2020-02-28 01:04] LABS: INR 1.32 (0.8-1.2)
[2020-02-28] MEDS: sodium chloride 0.9% 500 ML IV ×2 (02:00→14:48)
[2020-02-28 04:37] LABS: ABG PCO2 25.7 mmHg (35-45); ABG PH Result 7.32 (7.35-7.45); Arterial Blood Gas Hematocrit 32.9 % (42-52); Base Excess ABG -11.5 mmol/L (-2.0-2.0); Blood Gas Sample Site ARTLINE; Blood Gas Sample Type Arterial; HCO3 ABG 13.1 mmol/L (22-26); Oxygen Device VENT; PO2 ABG 92.9 mmHg (80.0-100.0)
[2020-02-28 05:02] LABS: Basophils # 0.1 10^3/uL (0.0-0.1); Basophils % 0.2 %; Hematocrit 31.4 % (42.0-52.0); Hemoglobin 10.4 g/dL (11.7-16.6); Lymphocytes # 1.2 10^3/uL (0.8-4.8); Lymphocytes % 4.7 %; Mean Corpuscular HGB Conc 33.1 g/dL (30.0-36.0); Mean Corpuscular Hemoglobin 31.4 pg (28.0-34.0); Mean Corpuscular Volume 94.9 fL (80-94); Mean Platelet Volume 10.4 fL (7.4-10.4); Monocytes # 1.6 10^3/uL (0.2-0.9); Monocytes % 6.3 %; Neutrophils # 21.94 10^3/uL (1.8-7.7); Neutrophils % 88.1 %; Nucleated Red Blood Cells % 0 %; Platelet Count 254 10^3/cmm (130-400); Red Blood Count 3.31 10^6/uL (4.1-5.3); Red Cell Distribution Width 12.1 % (12.1-15.1); White Blood Count 24.9 10^3/uL (4.0-10.0)
[2020-02-28 05:35] LABS: Alanine Aminotransferase 84 U/L (0-41); Albumin Level 2.8 g/dL (3.5-5.2); Alkaline Phosphatase 84 IU/L (40-130); Anion Gap 20.1 (5-19); Aspartate Amino Transferase 127 U/L (0-40); Blood Urea Nitrogen 21 mg/dL (8-23); Calcium 6.4 mg/dL (8.5-10.5); Carbon Dioxide 14 mmol/L (22-29); Chloride 107 mmol/L (98-107); Globulin 1.9 g/dL (1.3-4.6); Glucose 352 mg/dL (65-115); Magnesium 1.4 mg/dL (1.7-2.3); Osmolality Calculated 295 mOsm/kg (285-295); Phosphorus 2.5 mg/dL (2.5-4.5); Potassium 4.1 mmol/L (3.5-5.1); Sodium 137 mmol/L (136-145); Total Bilirubin 0.8 mg/dL (0.15-1.2); Total Protein 4.7 g/dL (6.6-8.7)
[2020-02-28] MEDS: sodium chloride 0.9% 1,000 ML 75 ML IV ×2 (05:39→19:46)
--- NOTE | 2020-02-28 06:00 | ECG_ITS ---
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 Measurements Intervals [place] Rate: 85 P: 61 MT: 164 QRS: -79 QRSD: 119 T: 64 QT: 392 QTc: 467 Interpretive Statements SINUS RHYTHM MARKED LEFT AXIS DEVIATION [QRS AXIS < -30] LOW QRS VOLTAGE IN PRECORDIAL LEADS [QRS DEFLECTION < 1.0 mV IN CHEST LEADS] PATTERN CONSISTENT WITH PULMONARY DISEASE RIGHT BUNDLE BRANCH BLOCK [120+ ms QRS DURATION, UPRIGHT V1, 40+ ms S IN I/aVL/V4/V5/V6] INTERPRETATION BASED ON A DEFAULT AGE OF 40 YEARS Compared to ECG 02/28/2020 01:28:47 Left-axis deviation now present Low QRS voltage now present Left anterior fascicular block no longer present Electronically Signed On 02-29-2020 0:35:39 CDT by Aissatou Alvarado M.D. [id number] salas
--- NOTE | 2020-02-28 06:37 | PM.EVENT ---
Event Note Event Note: This morning patient is now off of vasopressin. His Levophed is down to 18 mics from a max of 20 earlier. He has the noninvasive hemodynamic monitoring system in place currently. Recent evaluation for fluid challenge shows that he continues to be fluid responsive. We will give him an additional 500 cc bolus over 2 hours. Have given him several over the night. Current arterial line pressure is 111 systolic with peripheral pressure as measured at 110 systolic. Heart rate is 83 and he remains off of pacer. Hopefully we can continue to wean down pressors. Chest x-ray per my interpretation this morning does not show significant enlargement of the pneumothorax. In fact it may be smaller than the last chest x-ray. His white count remains elevated. Hemoglobin is down to 10, creatinine is around 2. Magnesium is low this morning and will be replaced. Night patient is continued to show posturing and clonic type movements. He has lateral nystagmus of both eyes. He has had no purposeful movement throughout the night. Had 6 beat clonus in the right ankle just a bit ago. I did start him on Keppra. Ativan seems to have helped the most with the clonic type movements and it is ordered as needed. I suspect that he has had a significant anoxic injury. Event Notes Attestations Time Spent in Patient Care: 16 - 35 minutes 30 minutes in care throughout the morning hours today evaluating patient periodically and discussing with nursing staff.
--- NOTE | 2020-02-28 07:00 | XRR_ITS ---
PROCEDURE INFORMATION: Exam: XR Chest, 1 View Exam date and time: 02/28/2020 7:53 AM Age: 69 years old Clinical indication: Condition or disease; Other: Follow up chest tube/post code; Additional info: SOB TECHNIQUE: Imaging protocol: XR of the chest Views: Frontal portable supine view of the chest. COMPARISON: CR XR chest 2V* [id number] 02/27/2020 10:33 PM FINDINGS: Tubes, catheters and devices: The endotracheal tube tip is approximately 3.5 cm above the gila. The feeding tube enters the stomach with the tip in the lower gastric body. Probable pacemaker lead. EKG leads are present overlying the chest. Lungs: The visible left pulmonary vasculature is normal. Right apical consolidative density and right parahilar infiltrates. The visible left pulmonary vasculature is normal. Pleural space: Small right apical pleural effusion. No pneumothorax (to the recently previously demonstrated right anterior pneumothorax is not conspicuous on this imaging). Heart/Mediastinum: The heart is normal in size and contour. The heart is normal in size and contour. Bones/joints: Stable. XR/XR chest 1V portable [id number] IMPRESSION: 1. Small right apical pleural effusion. 2. Right apical consolidative density and right parahilar infiltrates. Pneumonitis is difficult to exclude. Clinical correlation is recommended.
[2020-02-28 08:24] LABS: Glucose Point of Care 231 mg/dL (70-110)
[2020-02-28] MEDS: pantoprazole 40 mg SDV IVP ×2 (09:20→19:13)
[2020-02-28] MEDS: magnesium sulfate premix 2 GM/50 ML PIGGYBACK IV (09:22)
[2020-02-28] MEDS: piperacillin-tazobactam 3.375 GM in sodium chloride 0.9% (plus) 50 ML IV ×2 (09:22→15:50)
[2020-02-28] MEDS: norepinephrine 8 MG in dextrose 5 % 500 ML 37.5 MG IV (09:41)
[2020-02-28] MEDS: heparin 5,000 unit/mL INJ 1 mL 5000 UNIT SUBCUT ×2 (10:03→19:14)
[2020-02-28] MEDS: aspirin 81 mg EC Tablet PO (10:04)
[2020-02-28 10:48] LABS: Partial Thromboplastin Time 28.3 SECONDS (23.9-36.7)
[2020-02-28 11:19] LABS: Lactic Sepsis W/Reflex 5.1 mmol/L (0.5-2.2)
[2020-02-28] MEDS: clopidogrel 75 mg Tablet PO (11:50)
[2020-02-28 11:51] LABS: Glucose Point of Care 169 mg/dL (70-110)
--- NOTE | 2020-02-28 12:16 | USCV_ITS ---
Fermín Dodson Age: 69 Gender: M : 1950 Exam Date: 02/28/2020 06:43 Ordering Phys: Gerda Gilbert MD ([email or web address]) Technologist: James Welsh [place] [facility] [place]: [place]I BP: 116 / 48 HR: 80 Rhythm: Sinus Technical Quality: Adequate MEASUREMENTS (Male / Female) Normal Values 2D ECHO LA Diameter 2.9 cm M-MODE LV Diastolic Diameter MM 4.3 cm 4.2 - 5.9 / 3.9 - 5.3 cm LV Systolic Diameter MM 3.3 cm LV Ejection Fraction MM Teich 48.7 % IVS Diastolic Thickness MM 1.0 cm 0.6 - 1.0 / 0.6 - 0.9 cm IVS Systolic Thickness MM 1.2 cm LVPW Diastolic Thickness MM 0.9 cm 0.6 - 1.0 / 0.6 - 0.9 cm LVPW Systolic Thickness MM 1.1 cm RV Diastolic Diameter MM 1.8 cm Aortic Annulus Diameter 3.1 cm LA Ao Ratio MM 0.9 FINDINGS Left Ventricle Normal left ventricular cavity size. Mildly decreased left ventricular systolic function. Left ventricular ejection fraction is estimated at 50 %. Global left ventricular hypokinesis. Due to foreshortening of left ventricle function and wall motion may not be accurate Right Ventricle Mildly increased right ventricular size. Moderately decreased right ventricular systolic function. Right Atrium Left Atrium Mitral Valve Aortic Valve Tricuspid Valve Pulmonic Valve Pericardium Aorta CONCLUSIONS Please note that this is a limited echo performed late night to assess etiology for hypotension after ST elevation SC 1-Normal left ventricular cavity size. Mildly decreased left ventricular systolic function. Left ventricular ejection fraction is estimated at 50 %. Global left ventricular hypokinesis. Due to foreshortening of left ventricle function and wall motion may not be accurate. 2-Mildly increased right ventricular size. Moderately decreased right ventricular systolic function. 3-There is no pericardial effusion. 4-There are no prior echocardiogram studies to compare. Gerda Gilbert MD (Electronically Signed) Final Date: 28 February 2020 19:30 S
[2020-02-28 12:20] LABS: Reflex Lactate Order REFLEX LACTIC ORDERD
[2020-02-28 12:46] LABS: ABG PCO2 24.8 mmHg (35-45); ABG PH Result 7.43 (7.35-7.45); Arterial Blood Gas Hematocrit 28.9 % (42-52); Base Excess ABG -6.6 mmol/L (-2.0-2.0); Blood Gas Operator Identificat CAK; Blood Gas Sample Type Arterial; Carboxyhemoglobin 0.7 %THgb (0.4-20.1); HCO3 ABG 16.5 mmol/L (22-26); HGB O2 Sat 95.2 % (95-100); Methemoglobin < 0.0 % (0.4-1.5); Oxygen Device VENT; Oxygen Saturation ABG 95.9; PO2 ABG 74.7 mmHg (80.0-100.0); Potassium Level - ABG 3.6 mmol/L (3.5-5.0); Total Hemoglobin 9.4 g/dL (14-18)
[2020-02-28 14:16] LABS: Lactic Acid level (Lactate) 4.9 mmol/L (0.5-2.2)
--- NOTE | 2020-02-28 14:37 | CTR_ITS ---
PROCEDURE INFORMATION: Exam: CT Head Without Contrast Exam date and time: 02/28/2020 2:52 PM Age: 69 years old Clinical indication: Altered mental status/memory loss; Patient HX: altered mental status post code. Intubated. TECHNIQUE: Imaging protocol: Computed tomography of the head without contrast. Radiation optimization: All CT scans at this facility use at least one of these dose optimization techniques: automated exposure control; mA and/or kV adjustment per patient size (includes targeted exams where dose is matched to clinical indication); or iterative reconstruction. COMPARISON: CT head wo con* [id number] 02/27/2020 5:55 PM RADIATION DOSE METRICS: Total DLP (mGy-cm): 867.14 FINDINGS: Brain: Mild hypoattenuating foci are noted in the anterior lateral ventricular periventricular white matter bilaterally. No intracranial hemorrhage. No mass or acute cortical infarction identified. A left-sided prominence of the posterolateral pericerebellar subarachnoid space (is devoid of crossing vessel), measuring 3.7 x 2.5 x 1.7 cm. Ventricles: Prominence of the ventricular system and subarachnoid spaces is consistent with the patient's age of 69 years. Bones/joints: Unremarkable. No acute fracture. Sinuses: Dependent fluid bilateral posterior sphenoid sinuses, posterior right maxillary sinus. Mastoid air cells: Visualized mastoid air cells are well aerated. Vasculature: Atherosclerotic calcifications are present involving the carotid artery siphons bilaterally. Soft tissues: Unremarkable. Nasopharynx: Enlarged adenoids versus pooled secretions in the nasopharynx (intubated patient). CT/CT head wo con* [id number] IMPRESSION: 1. Age appropriate supratentorial and infratentorial atrophy. 2. Mild chronic white matter microvascular ischemic disease. 3. Stable probable left posterior fossa benign arachnoid cyst. 4. No acute intracranial abnormality identified. 5. Incidental paranasal sinus disease as above. 6. Enlarged adenoids versus pooled secretions in the nasopharynx. Radiation Dose CTDIVOL = (mGy): DLP = 867.14 (mGy-cm)
--- NOTE | 2020-02-28 16:30 | P.PN_ITS ---
Subjective Subjective: Interval history: Overnight patient had hypotensive episodes, requiring up to 3 pressors, did respond to the NICOM machine, fluid responsive, currently weaned down to levophedgoing at 6 mcg, map greater than 65, respiratory status, FiO2 has been weaned down to 40%, tidal volumes 500, has evidence of agonal breathing, chest x-ray this morning shows minimal right pneumothorax the size has decreased, has a right thoracic vent in place, I cannot discern any air leak, patient pressure 7, cardiovascular had stent placed in the RCA by Dr. Pink yesterday evening, is on appropriate antiplatelet therapy, urine output is 1150, creatinine is 2.0, lactic acid was as high as 7.2, white blood cell count 24.9, hemoglobin 10.4. Currently on only fentanyl, Levophed minimally going at 6 mcgoverall the concern is patient's neurologic status, the concern for severe anoxic brain injury is quite evident, as patient off sedation does not withdraw from pain, pupils are very sluggishly reactive, I could not discern a corneal reflex, does not laterally track objects, nystagmus present, Babinski negative bilaterally, does not respond to verbal commands off sedation, has extensor posturing,. Overnight there was some concerns for clonus activities that was concerning for seizures, responding to Ativan, currently on Keppra. Given patient's residual right pneumothorax, with thoracic vent in place, I did discuss the case with Dr. Crain, as patient's FiO2 is ar minimal at 40%, good tidal volumes, minimal PEEP, patient's pressure on the thoracic event is minimal at 7, likely that the pneumothorax associated with chest compressions would will resolve over time, but will keep a close eye and respiratory status, daily chest x-rays Thus currently I am quite concerned for the possibility for anoxic brain injury, and/or associated cerebral edema, for this I have consulted Dr. Reynolds. He does have evidence of multiorgan failure, lactic acidosis, but this seems to be improving, blood pressures have been responding to fluid challenges, levophec and is only minimal. Currently patient's prognosis is gaurded, status is critical, I have tried to reach out to patient's friend and , but I have only been able to leave messages. When I have been told from nurses that his is currently flying from [place] to [place], currently in [place]. Vitals/I&O/Wt Last Vital Signs Temp 99.5 F 02/28/20 12:00 Pulse 93 02/28/20 14:15 Resp 17 02/28/20 13:13 BP 108/56 02/28/20 14:15 Pulse Ox 96 02/28/20 14:15 02/28/20 02/28/20 02/28/20 06:59 14:59 22:59 Intake Total 1540.777 / 1609.727 201.341 / 201.341 130.5 / 331.841 Output Total 600 / 1150 325 / 325 Balance 940.777 / 459.727 -123.659 / -123.659 130.5 / 6.841 Weight last 48 hrs Weight 81.647 kg Physical Exam Const: GENERAL APPEARANCE: patient mechanically ventilated OTHER: Intubated, sedated HENMT: COMMON NORMALS: normocephalic HEAD & SCALP: normocephalic Eye: OTHER: pupils sluggishly reactive to light, does not track objects, n ystagmus present Neck/C-Spine: COMMON NORMALS: no lymphadenopathy and no JVD Chest: COMMONS NORMALS: normal inspection of the chest Resp: COMMON NORMALS: normal respiratory effort, No retractions, No use of accessory muscles and clear to auscultation bilaterally AUSCULTATION: clear to auscultation bilaterally OTHER: Does have evidence of agonal breathing Cardio: COMMON NORMALS: no JVD, regular rate, regular rhythm, S1 normal heart sound present and S2 normal heart sound present RATE: regular rate RHYTHM: regular rhythm HEART SOUNDS: S1 normal heart sound present and S2 normal heart sound present GI: COMMON NORMALS: Normal to inspection, nondistended, normoactive bowel sounds present, Soft to palpation, non-tender and No hepatosplenomegaly present PALPATION: Yes Soft to palpation and Yes No hepatosplenomegaly present : BLADDER/KIDNEY EXAM: Yes catheter in place Extremity: COMMON NORMALS: normal to inspection Neuro: OTHER: Patient does not withdraw from pain, negative Babinski, extensor posturing, sluggish reactive pupils, nystagmus, does have a tendency to look down Urinary Catheter Management^: River: Cath Placed During This Visit: yes Reason for Continuing Indwelling Catheter: Accurate Measurement of Urinary Output in Critically Ill Patients Urinary Catheter Date of Insertion: 02/27/20 Urinary Catheter Time of Insertion: 17:32 Sepsis: Is patient septic: No Data : 02/28/20 04:30 02/28/20 04:30 Micro: Microbiology 02/28/20 09:25 Blood Culture - Preliminary Blood SPECIMEN COLLECTED 02/28/20 09:21 Blood Culture - Preliminary Blood SPECIMEN COLLECTED 02/27/20 17:52 Gram Stain - Final Sputum - Endotracheal Tube Aspirate A&P Assessment and plan (1) Cardiac arrest with ventricular fibrillation: -Likely secondary to RCA thrombus -Bedside echocardiogram showed left ventricular ejection fraction 45 to 50%, -Status post RCA stenting, with 2 drug-eluting stent placement by Dr. Palma yesterday -Currently intubated, sedated on fentanyl, FiO2 60%; minimize PEEP, minimize FiO2 -did require up to 3 pressors, currently down to levophed minimally going at 6 mcg, maintain map greater than 65 -Has groin arterial sheath in place -Peripheral IVs in place -We will try to obtain central access -Patient is fluid responsive, positive NICOM -Right thoracic vent in place, no leak present -Heparin for DVT prophylaxis -Protonix for GI prophylaxis -Neuro checks, daily neurologic exams monitor vitals -I spoke to patient's , currently patient is a full code, but according to patient's he would not want any life-sustaining measures if his likelihood of meaningful recovery would be poor -Currently patient status is critical, prognosis is guarded -All parties were made aware, including , patient's friend, advised to let all family members know Status: Acute (2) Anoxic brain injury: -Patient unfortunate has poor prognostic indicators, tends to look down, does not withdraw from pain, extensor posturing -Thus has evidence of anoxic brain injury -Repeat CT of the head did not show any significant cerebral edema -We will obtain EEG -I have consulted Dr. Reynolds, who concurs with above -Given patient's age, no other significant risk factors except hyperlipidemia and depression, will give patient benefit of the doubt, monitor for the next 24 to 48 hours -We will discuss with patient's family, discussed future directives Status: Acute (3) Multiorgan failure: -Creatinine 2.0, transaminitis, lactic acidosis Status: Acute (4) Acute respiratory failure: Status: Acute (5) S/P right coronary artery (RCA) stent placement: Status: Acute (6) Pneumothorax: -Right thoracic vent in place -Minimal leak -Chest x-ray this morning shows size of pneumothorax is actually decreased but persistent -Given persistent pneumothorax, and patient's on positive pressure ventilation was concerned for expansion of pneumothorax -I discussed the case with Dr. Crain -Dr. Crain felt as pneumothorax is minimal, patient is doing well on ventilation, patient pressure is only 7, likely pneumothorax will resolve over time, continue to monitor respiratory status closely, daily chest x-rays Status: Acute Qualifiers: Encounter type: initial encounter Pneumothorax type: traumatic Qual ified Code(s): S27.0XXA - Traumatic pneumothorax, initial encounter (7) Symptomatic bradycardia: -Status post temporary pacemaker in place, bradycardia has improved Status: Acute (8) Hyperlipidemia: Continue aspirin statin Status: Acute (9) Elevated blood sugar: We will check hemoglobin A1c Status: Acute (10) Depression: Status: Acute (11) Leukocytosis: Likely active Status: Acute (12) Acidemia: Will give 1 amp of bicarb, check lactic acid Status: Acute (13) Acute kidney injury: Creatinine up to 1.9, will receive contrast, start gentle hydration, monitor urine output, River catheter placed, monitor creatinine Status: Acute (14) Transaminitis: Status: Acute (15) Lactic acidosis: Status: Acute Additional A&P Information Patient is a full code Heparin for DVT prophylaxis Patient's prognosis is guarded, status is critical Attestations Medical Necessity Statement*: Patient requires hospitalization and due to car diac arrest, V. 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
--- NOTE | 2020-02-28 16:41 | XR_ITS ---
WS: [id number] Portable AP supine chest, 02/28/2020, 1717 hours. Clinical Data: sob Comparison: Portable supine chest, yesterday, 0554 hours. Findings: The patchy opacity over the right lung is increased which may represent increasing effusion . There is a small catheter which is overlying the lateral mid right lung. There is a right apical pl eural effusion unchanged. The left lung is only partly included but appears to be normal. The endotra cheal tube and nasogastric tube have not changed. Monitor leads are on the chest wall. Small pacemake r wires remain in position. The heart remains normal. XR/XR chest 1V portable [id number] Impression: 1. Increasing opacity over right lung which may represent increase in right eff usion. 2. No change in position of multiple tubes. 3. No change in right apical opacity.
--- NOTE | 2020-02-28 17:06 | PM.CONSULT ---
Providers/Reason For Consult Consulting Physican/Specialty*: Pernell Trevino MD Reason for Consult*: Anoxic encephalopathy, neurologic opinion Attending Physician: Pernell Rodriguez MD History of Present Illness History of Present Illness Fermín Dodson is a 69 year old man who has no significant medical history except for hypertension. He was moving a freezer when he developed chest pain and thought he had pulled a muscle. He walked into another room and collapsed. He was found cyanotic by his friend, who called 911 and started CPR. When EMS arrived 20 minutes later, he was in ventricular fibrillation. He was shocked 7 times before spontaneous circulation developed with bradycardia, rates in the 20s and requiring an external pacemaker. He was taken immediately to the [facility] by Dr. Palma because he was still bradycardic and hypotensive. See CT scan of the head performed in the emergency department and reviewed by me now was unremarkable. His pH on arrival was 7.18 and he was well oxygenated. He had a pneumothorax related to chest compressions and treatment. He required Levophed for hypotension. Dr. Alfredo was called to the bedside and noted some clonic movements and started him on Keppra. The nurse questions whether he has had any meaningful movement. She cannot describe anything to me that is convincing. He has had some nonspecific leg movements that are probably atypical triple flexion response. He has had posturing although there is none evident on my exam presently. His is on her way from [place]. I talked with Dr. Trevino this morning and saw the patient urgently in the afternoon. Subsequently I reviewed his CT scan of the head which does not show brain edema and I talked with Dr. Trevino. Review of Systems General: Reports: ROS unobtainable due to medical condition (He is comatose. He was helping a friend to move some furniture including a large freezer and did not report any symptoms until he developed chest pain and thought he had pulled a muscle. He sat down on the couch, got up and walked into the other room and collapsed according to EMS who obtained a history from the friend.) Meds/Allergies Home Medications and Allergies Home Medications Medication Instructions Recorded Confirmed Last Taken Type No Known Home Medications 02/27/20 02/27/20 Unknown History Allergies Allergy/AdvReac Type Severity Reaction Status Date / Time No Known Allergies Allergy Verified 02/27/20 17:41 Current Medications Current Medications Generic Name Dose Route Start Last Admin Trade Name Freq PRN Reason Stop Dose Admin Aspirin 81 mg 02/28/20 09:00 02/28/20 10:04 Aspirin Ec PO 81 mg DAILY ANSELMO Administration Atorvastatin Calcium 80 mg 02/27/20 21:00 02/27/20 21:02 Lipitor PO 80 mg BEDTIME ANSELMO Administration Clopidogrel Bisulfate 75 mg 02/28/20 09:00 02/28/20 11:50 Plavix PO 75 mg DAILY ANSELMO Administration Heparin Sodium (Beef Lung) 5,000 unit 02/28/20 07:00 02/28/20 10:03 Heparin SUBCUT 5,000 unit Q12H ANSELMO Administration Fentanyl 1,000 mcg/ Sodium 100 mls @ 0 mls/hr 02/27/20 17:30 02/28/20 10:37 Chloride IV 0 mcg/hr .Q0M ANSELMO 0 mls/hr Titration Protocol Per Protocol Sodium Chloride 1,000 mls @ 75 mls/hr 02/27/20 19:14 02/28/20 05:39 Sodium Chloride 0.9% IV 75 mls/hr .[id number] ANSELMO Administration Tirofiban/Sodium Chloride 12.5 mg in 250 mls @ 15.5 mls/hr 02/27/20 19:30 02/27/20 21:28 Aggrastat IV 0 mls/hr .Q16H8M ANSELMO 0 mls/hr Titration Protocol Norepinephrine Bitartrate 4 mg 254 mls @ 0 mls/hr 02/27/20 21:15 02/28/20 09:37 / Dextrose IV Infused .Q0M ANSELMO Titration Protocol Per Protocol Vasopressin 100 unit/ Sodium 100 mls @ 0 mls/hr 02/27/20 23:15 02/28/20 05:01 Chloride IV 0 unit/min .Q0M ANSELMO 0 mls/hr Titration Protocol Per Protocol Levetiracetam 500 mg/ Sodium 105 mls @ 420 mls/hr 02/27/20 23:45 02/28/20 11:50 Chloride IV 420 mls/hr Q12H ANSELMO Administration Norepinephrine Bitartrate 8 mg 508 mls @ 0 mls/hr 02/28/20 02:00 02/28/20 16:20 / Dextrose IV 7.87 mcg/min .Q0M ANSELMO 30 mls/hr Titration Protocol Per Protocol Piperacillin Sod/Tazobactam 50 mls @ 12.5 mls/hr 02/28/20 08:00 02/28/20 15:50 Sod 3.375 gm/ Sodium Chloride IV 12.5 mls/hr Q8H ANSELMO Administration Insulin Aspart 0 unit 02/28/20 08:00 02/28/20 11:53 Novolog SUBCUT 2 unit TIDWM ANSELMO Administration Protocol Pantoprazole Sodium 40 mg 02/27/20 19:14 02/28/20 09:20 Protonix IVP 40 mg Q12H ANSELMO Administration PFSH Acute PFSH: Medical History Depression Hyperlipidemia Surgical History H/O hernia repair Vitals/I&O/Wt Last Vital Signs Temp 99.5 F 02/28/20 12:00 Pulse 93 02/28/20 14:15 Resp 25 H 02/28/20 14:00 BP 108/56 02/28/20 14:15 Pulse Ox 96 02/28/20 14:15 02/28/20 02/28/20 02/28/20 06:59 14:59 22:59 Intake Total 1540.777 / 1609.727 201.341 / 201.341 130.5 / 331.841 Output Total 600 / 1150 325 / 325 Balance 940.777 / 459.727 -123.659 / -123.659 130.5 / 6.841 Weight last 48 hrs Weight 180 lb Physical Exam Narrative: EXAM NARRATIVE: The patient was examined at the bedside in ICU with endotracheal tube in place. There was response to pain. He had a brisk left corneal response and no corneal response on the right. There was no response to voice. There was no response to deep nailbed pressure in either of the upper extremities. There was suspected atypical triple flexion response in both lower extremities. There was flexion at the toes, the ankles and the thighs without flexion of the knees so effectively this was a kicking motion elevating both of the legs off of the bed briefly and then the legs fell back. The movement was stereotypic and identical with each episode of nailbed pressure in the feet. There was no change in facial expression. Cranial nerves: Spontaneous position of the eyes down and in. Pupils 3 mm and sluggishly reactive. Oculocephalic movements absent. Corneals present on both sides. No facial grimace with pressure above the orbits. Urinary Catheter Management^: River: Cath Placed During This Visit: yes Reason for Continuing Indwelling Catheter: Accurate Measurement of Urinary Output in Critically Ill Patients Urinary Catheter Date of Insertion: 02/27/20 Urinary Catheter Time of Insertion: 17:32 Data Micro: Micro: Microbiology 02/28/20 09:25 Blood Culture - Pr eliminary Blood SPECIMEN [facility] 02/28/20 09:21 Blood Culture - Pr eliminary Blood SPECIMEN [facility] 02/27/20 17:52 Gram Stain - Final Sputum - Endotrac heal Tube Aspirate A&P Assessment and plan (1) Anoxic brain injury: Healthy 69-year-old man with no previous medical history and witnessed cardiac arrest with attempted resuscitation but prolonged anoxia now with evidence of profound multifocal anoxic brain injury. He has been medically somewhat unstable. He was severely acidotic on arrival after prolonged. Of ventricular fibrillation prior to EMS arrival and performance of CPR prior single individual. His prognosis is grave. He does not meet criteria for brain because he has intact corneal responses and an atypical response to pain in the lower extremities, although I think it is probably a variant of triple flexion which is a spinal reflex. My recommendation would be for continued support for the next 24 hours and reevaluate, recognizing that his prognosis is poor for meaningful recovery. 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
--- NOTE | 2020-02-28 18:45 | PM.PROC ---
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
[2020-02-28 19:06] LABS: Glucose Point of Care 175 mg/dL (70-110)
--- NOTE | 2020-02-28 19:09 | PC.NURSE ---
Pt's neuro status has not changed much today, despite sedation being completely off since 10:30am. He will withdraw to painful stimuli, but will not follow commands. Critical lactic acid results of 5.[address] Rodriguez at 11:26 and 14:17; see orders. No bleeding issues noted from right femoral site. Pulses weak but palpable in the popliteal, pedal, and posterior tibial areas. Dr. Rodriguez agreed with discontinuing q15 minute neurovascular checks. Dr. Gilbert instructed during rounds that nursing staff may remove arterial sheath if PTT<45. PTT was checked and found to be less than 45, however the sheath was kept in place for arterial blood pressure monitoring during ongoing vasopressor requirement, as well as blood draw access. Transvenous pacer also in place, and powered off at this time since pt remains in normal sinus rhythm. Pt did have one 7-beat run of V-tach at around 10:45am. Dr. Rodriguez notified; no orders received. Received a call this morning from Argenis Hassan, who states she is a physician elder assistant at this pt's PCP office in [place]. She was given updates over the phone once verbal consent to do so was given by . Argenis faxed some medical records for this patient, which were place in the front of the patient's paper chart. Dr. Reynolds was consulted for neurological evaluation. She assessed the pt at bedside and ordered a repeat head CT without contrast. Pt transported to CT with a respiratory therapist, myself, and another RN present. Pt was assisted with breathing via ambu-bag connected to ET tube. unemployment insurance hearing officer and IV pumps utilized as well. CT performed without difficulty and pt transported back to room without incident. Dr. Rodriguez had a discussion with and son once she arrived here from [place]. Physician states that family possibly will want to withdraw care, but they want to wait one more day. At this time, pt remains a full code until instructed otherwise by physician. [facility] notified of pt condition. They stated they will send a education courses sales representative this evening to round on the patient. Updated oncoming nurse.
[2020-02-28 19:18] LABS: Lactate (Lactic Acid level) 1.7 mmol/L (0.5-2.2)
--- NOTE | 2020-02-28 21:06 | PM.PN ---
Subjective Subjective: Interval history: Status post PCI to distal RCA with 2 drug-eluting stent and temporary pacemaker placement. Overnight patient required pressors and has been weaned off from vasopressin. Neurological status unknown. No spontaneous significant movement, occasional posturing noted. No significant pupil movement. Patient in need rhythm has been restored he is not using pacer Vitals/I&O/Wt Last Vital Signs Temp 99.5 F 02/28/20 12:00 Pulse 115 H 02/28/20 20:15 Resp 19 H 02/28/20 20:13 BP 110/62 02/28/20 20:15 Pulse Ox 93 02/28/20 20:15 02/28/20 02/28/20 02/28/20 06:59 14:59 22:59 Intake Total 1540.777 / 1609.727 371.341 / 851.595 7326.5 / 2346.841 Output Total 600 / 1150 325 / 325 175 / 500 Balance 940.777 / 459.727 46.341 / 46.341 1800.5 / 1846.841 Weight last 48 hrs Weight 180 lb Physical Exam Narrative: EXAM NARRATIVE: GENERAL: Patient unconscious intubated without significant pupil response HEENT: No cyanosis. No icterus. No pallor. HEART: Regular S1 and S2. No murmur, rub or gallop. LUNGS: Clear to auscultate bilaterally. ABDOMEN: Soft, nondistended. Positive bowel sounds. No guarding, rebound or tenderness. CENTRAL NERVOUS SYSTEM: No response. Occasional posturing, people dilated and not responding EXTREMITIES: Lower extremities without edema bilaterally. Urinary Catheter Management^: River: Cath Placed During This Visit: yes Reason for Continuing Indwelling Catheter: Accurate Measurement of Urinary Output in Critically Ill Patients Urinary Catheter Date of Insertion: 02/27/20 Urinary Catheter Time of Insertion: 17:32 Data : 02/28/20 04:30 02/28/20 04:30 Micro: Microbiology 02/28/20 09:25 Blood Culture - Preliminary Blood SPECIMEN COLLECTED 02/28/20 09:21 Blood Culture - Preliminary Blood SPECIMEN COLLECTED 02/27/20 17:52 Gram Stain - Final Sputum - Endotracheal Tube Aspirate A&P Assessment and plan (1) Cardiac arrest with ventricular fibrillation: Status post PCI of distal RCA. Currently stable from a cardiac standpoint. Neurological anoxic brain injury highly suspicious Status: Acute (2) Symptomatic bradycardia: Resolved now and not using pacer. Status: Acute (3) Pneumothorax: Status post chest tube Status: Acute Qualifiers: Encounter type: initial encounter Pneumothorax type: traumatic Qualified Code(s): S27.0XXA - Traumatic pneumothorax, initial encounter (4) Acute kidney injury: Due to acute tubular necrosis. Continue to maintain blood pressure and map. Status: Acute (5) Shock: Secondary V. fib arrest patient is on pressor continue to monitor Status: Acute (6) Brain anoxia: Secondary to V. fib arrest proportional to downtime which is unknown. Highly suspected brain injury. Neurological assessment by Dr. Reynolds appreciated. We will follow up on it. Status: Acute Attestations Medical Necessity Statement*: Require continuation hospitalization for above defined care. 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
[2020-02-28] MEDS: atorvastatin 40 mg Tablet 80 MG PO (21:29)
[2020-02-28 21:30] LABS: Glucose Point of Care 155 mg/dL (70-110)
--- NOTE | 2020-02-28 21:34 | P.PCN_ITS ---
Acute Procedures Central Line Placement^: Left Femoral: Additional comments: Procedure time: 1800 Procedure: Central venous access placement Indication: Shock , Vasopressors infusion Dehydrogenation Converter Helper(s): , Assisted/Supervised by Datar Consent: consent:[id number]::signed by family and placed in chart Time out called. [place] precautions applied. Site: left femoral Catheter: 7 Fr, 20 cm, Triple Lumen Sutured at: 20 cm Anesthesia: 5 cc 1% lidocaine without epinephrine Description: Area prepped with chlorhexidine and draped in a universal sterile manner. The vessel anatomy and patency was examined by ultrasound probe which was covered with sterile probe cover. The needle was inserted into the vessel under ultrasound guidance, after venous blood aspirated the guidewire was inserted through the needle and kept in situ while the needle was removed. Placement of guidewire in the vein and in relation to the adjacent artery was verified by ultrasound. Catheter was then advanced over the guidewire after dilation and guidewire successfully removed.The catheter was sutured to the skin and sterile dressing with chlorhexidine patch placed. Number of attempts: 1 Dilator applied: yes, number of Dilations: 1 Placement Verified by: Blood draw from all ports and Ultrasound exam EBL: 10 cc Complications: none Ultrasound guidance used: yes Images saved: no
[2020-02-29] VITALS (44 sets, daily range): BP systolic 85–147; BP diastolic 50–74; PULSE 97–133; RESP 16–20; TEMP 36.9–37.6; O2SAT 88–100
[2020-02-29] MEDS: norepinephrine 8 MG in dextrose 5 % 500 ML 22.9 MG IV (00:01)
[2020-02-29] MEDS: piperacillin-tazobactam 3.375 GM in sodium chloride 0.9% (plus) 50 ML IV ×2 (00:01→08:29)
[2020-02-29 00:49] LABS: Lactate (Lactic Acid level) 1.7 mmol/L (0.5-2.2)
--- NOTE | 2020-02-29 01:47 | PC.NURSE ---
Call to Physician [id number] called and informed that patient was was having a left sided dift in both eyes. not reactive toward light. CT obtained earlier in the day. No new orders received. will continue to monitor.
[2020-02-29] MEDS: LORazepam 2 mg/mL INJ 1 mL 1 MG IVP (03:04)
--- NOTE | 2020-02-29 03:46 | PC.NURSE ---
Sheath removal 0304 Right groin sheath removed. Manual pressure held by nurse for 17 minutes. Vital signs WNL. 2+ pedial pulses in the right foot before and after removal. pressure dressing and clear Tegaderm in place. patient had small hematoma and bruise prior to sheath removal. will continue to monitor patient.
[2020-02-29 05:24] LABS: Basophils % 0.2 %; Hematocrit 23.8 % (42.0-52.0); Hemoglobin 7.8 g/dL (11.7-16.6); Lymphocytes # 1.4 10^3/uL (0.8-4.8); Lymphocytes % 8.2 %; Mean Corpuscular HGB Conc 32.8 g/dL (30.0-36.0); Mean Corpuscular Hemoglobin 31.7 pg (28.0-34.0); Mean Corpuscular Volume 96.7 fL (80-94); Mean Platelet Volume 10.4 fL (7.4-10.4); Monocytes # 1.3 10^3/uL (0.2-0.9); Monocytes % 8.1 %; Neutrophils # 13.72 10^3/uL (1.8-7.7); Nucleated Red Blood Cells % 0 %; Platelet Count 166 10^3/cmm (130-400); Red Blood Count 2.46 10^6/uL (4.1-5.3); Red Cell Distribution Width 12.6 % (12.1-15.1); White Blood Count 16.5 10^3/uL (4.0-10.0)
[2020-02-29 05:34] LABS: INR 1.13 (0.8-1.2)
[2020-02-29 05:50] LABS: Lactate (Lactic Acid level) 1.7 mmol/L (0.5-2.2)
[2020-02-29 05:56] LABS: Alanine Aminotransferase 59 U/L (0-41); Albumin Level 2.4 g/dL (3.5-5.2); Alkaline Phosphatase 67 IU/L (40-130); Anion Gap 11.1 (5-19); Aspartate Amino Transferase 113 U/L (0-40); Blood Urea Nitrogen 24 mg/dL (8-23); Calcium 6.4 mg/dL (8.5-10.5); Carbon Dioxide 21 mmol/L (22-29); Chloride 111 mmol/L (98-107); Globulin 1.9 g/dL (1.3-4.6); Glucose 143 mg/dL (65-115); Magnesium 1.9 mg/dL (1.7-2.3); Osmolality Calculated 287 mOsm/kg (285-295); Phosphorus 2.7 mg/dL (2.5-4.5); Potassium 4.1 mmol/L (3.5-5.1); Sodium 139 mmol/L (136-145); Total Bilirubin 0.7 mg/dL (0.15-1.2); Total Protein 4.3 g/dL (6.6-8.7)
[2020-02-29 06:02] LABS: C Reactive Protein 117.5 mg/L (0.0-4.9)
[2020-02-29 06:02] LABS: ABG PCO2 30.4 mmHg (35-45); ABG PH Result 7.41 (7.35-7.45); Base Excess ABG -4.7 mmol/L (-2.0-2.0); HCO3 ABG 19.2 mmol/L (22-26); Oxygen Device VENT; PO2 ABG 68.4 mmHg (80.0-100.0)
[2020-02-29 06:03] LABS: Arterial Blood Gas Hematocrit 28.6 % (42-52); Blood Gas Sample Type ARTERIAL
[2020-02-29 06:05] LABS: Cortisol Random 22.85 ug/mL (2.47-19.5)
[2020-02-29 06:06] LABS: Procalcitonin 4.23 ng/mL (0-0.5)
[2020-02-29 07:49] LABS: Glucose Point of Care 123 mg/dL (70-110)
[2020-02-29] MEDS: clopidogrel 75 mg Tablet PO (08:27)
[2020-02-29] MEDS: heparin 5,000 unit/mL INJ 1 mL 5000 UNIT SUBCUT (08:28)
[2020-02-29] MEDS: pantoprazole 40 mg SDV IVP (08:28)
[2020-02-29] MEDS: aspirin 81 mg EC Tablet PO (08:28)
[2020-02-29] MEDS: sodium chloride 0.9% 1,000 ML 75 ML IV (08:34)
--- NOTE | 2020-02-29 10:36 | PC.CHAP ---
Pastoral Care Encounter/Spiritual Assessment Type of Contact [] Declined acetylene burner visit [] Patient/Family/Request visit [] Outpatient visit [] Follow-up visit [] Physician referral [] Code/Alert [x] Routine visit [] Staff referral [] Actively dying [] Patient sleeping [x] Family support [] [] Out of room [] Palliative care [] [] Receiving care in room [] Pre-surgical visit [] Trauma [] Long length of stay [] ICU visit [x] Other: present, patient on respirator Relational/Emotional Strength [] Patient feels connected with others/family/visitors/staff [] Distress [] Loneliness/isolation [] Abandonment Spirituality of Patient [] Person of Marianne [] Attends Gnosticism of their Marianne [] Believes in Prayer [] Reads Bible or Pentecostal materials [] There are Spiritual issues to be addressed Electrician Station Assistant Interventions [x] Prayer [] Active listening [] Non-anxious presence [] Spiritual/emotional support [] Crisis/trauma care [] Spiritual counseling [] Bereavement support [] Provided bereavement packet [] Provided Bible/devotional materials [] Provided toy/stuffed animal, coloring book to patient or family member [] Provided Communion [] Anointing/[place] [] Salvation [x] Completed spiritual assessment [] Other: Impact on Illness or Injury [] Angry [] Fearful [] Anxious [] Often cries [] Exhaustion [] Unable to work [] Unable to attend episcopalian [] Unable to walk/stand [] Unable to read [] Unable to drive [] Unable to eat/drink [] Unable to sleep [] Unable to be with family [] Patient intubated [] Other: Summary Time spent with patient
[2020-02-29] MEDS: LORazepam 2 mg/mL INJ 1 mL 0.5 MG IVP (11:26)
[2020-02-29] MEDS: morphine 4 mg/mL SDV 1 mL 2 MG IVP ×5 (11:26→14:33)
--- NOTE | 2020-02-29 11:43 | PM.PN ---
Subjective Subjective: Interval history: Patient remained unresponsive to verbal or deep command. People dilated fixed he is not on sedation. There is no neurological sign for recovery. Dr. Reynolds examined the patient in the morning and decided with the family his that they will withdraw care today. Vitals/I&O/Wt Last Vital Signs Temp 98.5 F 02/29/20 07:00 Pulse 117 H 02/29/20 10:30 Resp 20 H 02/29/20 11:15 BP 115/63 02/29/20 10:30 Pulse Ox 94 02/29/20 10:30 02/28/20 02/29/20 02/29/20 22:59 06:59 14:59 Intake Total 1981.125 / 2352.466 160.647 / 2513.113 1030.741 / 1030.741 Output Total 375 / 700 300 / 1000 Balance 1606.125 / 1652.466 -139.353 / 8831.129 6947.741 / 1030.741 Weight last 48 hrs Weight 180 lb Physical Exam Narrative: EXAM NARRATIVE: GENERAL: Patient unconscious intubated without significant pupil response. He is not on any sedation HEENT: No cyanosis. No icterus. No pallor. HEART: Regular S1 and S2. No murmur, rub or gallop. LUNGS: Clear to auscultate bilaterally. ABDOMEN: Soft, nondistended. CENTRAL NERVOUS SYSTEM: No response. Fixed dilated pupil EXTREMITIES: Lower extremities without edema bilaterally. Urinary Catheter Management^: River: Cath Placed During This Visit: yes Reason for Continuing Indwelling Catheter: Accurate Measurement of Urinary Output in Critically Ill Patients Urinary Catheter Date of Insertion: 02/27/20 Urinary Catheter Time of Insertion: 17:32 Data : 02/29/20 04:40 02/29/20 04:40 Micro: Microbiology 02/28/20 09:25 Blood Culture - Preliminary Blood NEGATIVE TO DATE 02/28/20 09:21 Blood Culture - Preliminary Blood NEGATIVE TO DATE 02/27/20 17:52 Gram Stain - Final Sputum - Endotracheal Tube Aspirate A&P Assessment and plan (1) Cardiac arrest with ventricular fibrillation: Status post PCI of distal RCA. Currently stable from a cardiac standpoint. Due to reversible neurological anoxic brain injury family and neurology decided to withdraw support. We agree with it Status: Acute (2) Symptomatic bradycardia: Resolved now and not using pacer. Status: Acute (3) Pneumothorax: Status post chest tube Status: Acute Qualifiers: Encounter type: initial encounter Pneumothorax type: traumatic Qualified Code(s): S27.0XXA - Traumatic pneumothorax, initial encounter (4) Acute kidney injury: Due to acute tubular necrosis. Status: Acute (5) Shock: Resolved. Status: Acute (6) Brain anoxia: Patient had anoxic brain damage. After recommendation conference with neurology and family support is going to be withdrawn. 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
[2020-02-29] MEDS: LORazepam 2 mg/mL INJ 1 mL IVP ×4 (11:58→14:33)
--- NOTE | 2020-02-29 12:41 | P.PN_ITS ---
Subjective Subjective: Interval history: Overnight, patient's Levophed, was weaned off, he is fairly normotensive, map is greater than 65, has intermittent episodes of sinus tachycardia, FiO2 40%, PEEP of 5, good tidal volumes, thoracic vent shows no air leak, chest x-ray this morning did show increase opacification in right lung padilla, patient's creatinine is improved, lactic acid has decreased to 1.7, transaminitis has stabilized, no arrhythmia events overnight, hemoglobin has decreased to 7.8, no overt signs of bleeding Neurologic function, pupils are fixed, nonresponsive, eyes tend to look down, does not withdraw from pain, extensor posturing, does not follow commands, slight nystagmus present, does not follow objects, in terms of his breathing seem agonal at times After discussing with neurology, Dr. Reynolds was also kind enough to see the patient this morning, patient's likelihood of neurologic recovery is fairly unlikely, has had significant anoxic brain injury, his likelihood of meaningful recovery is very unlikely, likely will not have any significant neurologic bridger very after this significant insult, prognosis is poor, condition is stable It is family's wishes that patient not suffer, his tells me that he would not want to live like this, they do not want patient to be on life-sustaining measures if the likelihood of meaningful recovery is unlikely, they were made aware that although his cardiac function has stabilized, his multiorgan failure is improving, he is off pressors, his other organ systems seem to be stable and improving; but unfortunately he continues to have significant clinical signs of anoxic brain injury after 48 hours, and the likelihood of meaningful recovery is fairly unlikely. Options I presented to patient's family were continuing medical interventions and monitoring neurologic function versus proceeding to comfort care. According to patient's family's, patient's wishes were to not live like this, not live on a ventilator, not live with life-sustaining measures if his likelihood of meaningful recovery was poor, they want him to remain comfortable, they want to ease his pain easing suffering, and according to his if this is a time the good Lord takes him and they are okay with it as they believe in the afterlife. After discussion of the risks and benefits, voiced understanding, all questions answered, proceed to comfort care. All parties in agreement. This a discussion was made in front of the nurse Ray. Proceeded to comfort care. Vitals/I&O/Wt Last Vital Signs Temp 98.5 F 02/29/20 07:00 Pulse 117 H 02/29/20 10:30 Resp 20 H 02/29/20 11:15 BP 115/63 02/29/20 10:30 Pulse Ox 94 02/29/20 10:30 02/28/20 02/29/20 02/29/20 22:59 06:59 14:59 Intake Total 1981.125 / 2352.466 160.647 / 2513.113 1030.741 / 1030.741 Output Total 375 / 700 300 / 1000 Balance 1606.125 / 1652.466 -139.353 / 8498.300 8673.741 / 1030.741 Weight last 48 hrs Weight 81.647 kg Physical Exam 2 Const: GENERAL APPEARANCE: patient mechanically ventilated OTHER: Intubated, sedated HENMT: COMMON NORMALS: normocephalic HEAD & SCALP: normocephalic Eye: OTHER: Pupils are fixed, nonreactive to light, tends to look down, slight nystagmus present Neck/C-Spine: COMMON NORMALS: no lymphadenopathy and no JVD Chest: COMMONS NORMALS: normal inspection of the chest OTHER: Right thoracic vent in place Resp: COMMON NORMALS: normal respiratory effort, No retractions, No use of accessory muscles and clear to auscultation bilaterally AUSCULTATION: clear to auscultation bilaterally OTHER: Does have evidence of agonal breathing Cardio: COMMON NORMALS: no JVD, regular rate, regular rhythm, S1 normal heart sound present and S2 normal heart sound present RATE: regular rate RHYTHM: regular rhythm HEART SOUNDS: S1 normal heart sound present and S2 normal heart sound present GI: COMMON NORMALS: Normal to inspection, nondistended, normoactive bowel sounds present, Soft to palpation, non-tender and No hepatosplenomegaly present PALPATION: Yes Soft to palpation and Yes No hepatosplenomegaly present : BLADDER/KIDNEY EXAM: Yes catheter in place Extremity: COMMON NORMALS: normal to inspection Neuro: OTHER: Patient does not withdraw from pain, extensor posturing, pupils nonreactive, nystagmus, does have a tendency to look down Urinary Catheter Management^: River: Cath Placed During This Visit: yes Reason for Continuing Indwelling Catheter: Accurate Measurement of Urinary Output in Critically Ill Patients Urinary Catheter Date of Insertion: 02/27/20 Urinary Catheter Time of Insertion: 17:32 Data : 02/29/20 04:40 02/29/20 04:40 Micro: Microbiology 02/28/20 09:25 Blood Culture - Preliminary Blood NEGATIVE TO DATE 02/28/20 09:21 Blood Culture - Preliminary Blood NEGATIVE TO DATE 02/27/20 17:52 Gram Stain - Final Sputum - Endotracheal Tube Aspirate A&P Assessment and plan (1) Cardiac arrest with ventricular fibrillation: Proceeding to comfort care, comfort care initiated, -Likely secondary to RCA thrombus -Bedside echocardiogram showed left ventricular ejection fraction 45 to 50%, -Status post RCA stenting, with 2 drug-eluting stent placement by Dr. Palma yesterday -Currently intubated, sedated on fentanyl, FiO2 60%; minimize PEEP, minimize FiO2 -did require up to 3 pressors, currently down to levophed minimally going at 6 mcg, maintain map greater than 65 -Has groin arterial sheath in place -Peripheral IVs in place -We will try to obtain central access -Patient is fluid responsive, positive NICOM -Right thoracic vent in place, no leak present -Heparin for DVT prophylaxis -Protonix for GI prophylaxis -Neuro checks, daily neurologic exams monitor vitals -I spoke to patient's , currently patient is a full code, but according to patient's he would not want any life-sustaining measures if his likelihood of meaningful recovery would be poor -Currently patient status is critical, prognosis is guarded -All parties were made aware, including , patient's friend, advised to let all family members know Status: Acute (2) Anoxic brain injury: -Patient unfortunate has poor prognostic indicators, tends to look down, does not withdraw from pain, extensor posturing -Thus has evidence of anoxic brain injury -Repeat CT of the head did not show any significant cerebral edema -We will obtain EEG -I have consulted Dr. Reynolds, who concurs with above -Given patient's age, no other significant risk factors except hyperlipidemia and depression, will give patient benefit of the doubt, monitor for the next 24 to 48 hours -We will discuss with patient's family, discussed future directives Status: Acute (3) Multiorgan failure: -Creatinine 2.0, transaminitis, lactic acidosis Status: Acute (4) Acute respiratory failure: Status: Acute (5) S/P right coronary artery (RCA) stent placement: Status: Acute (6) Pneumothorax: -Right thoracic vent in place -Minimal leak -Chest x-ray this morning shows size of pneumothorax is actually decreased but persistent -Given persistent pneumothorax, and patient's on positive pressure ventilation was concerned for expansion of pneumothorax -I discussed the case with Dr. Crain -Dr. Crain felt as pneumothorax is minimal, patient is doing well on ventilation, patient pressure is only 7, likely pneumothorax will resolve over time, continue to monitor respiratory status closely, daily chest x-rays Status: Acute Qualifiers: Encounter type: initial encounter Pneumothorax type: traumatic Qualified Code(s): S27.0XXA - Traumatic pneumothorax, initial encounter (7) Symptomatic bradycardia: -Status post temporary pacemaker in place, bradycardia has improved Status: Acute (8) Hyperlipidemia: Continue aspirin statin Status: Acute (9) Elevated blood sugar: We will check hemoglobin A1c Status: Acute (10) Depression: Status: Acute (11) Leukocytosis: Likely active Status: Acute (12) Acidemia: Will give 1 amp of bicarb, check lactic acid Status: Acute (13) Acute kidney injury: Creatinine up to 1.9, will receive contrast, start gentle hydration, monitor urine output, River catheter placed, monitor creatinine Status: Acute (14) Transaminitis: Status: Acute (15) Lactic acidosis: Status: Acute Additional A&P Information Patient is comfort care Patient's prognosis is poor, status is stable Attestations 2 Medical Necessity Statement*: Patient requires hospitalization, cardiac arrest, multiorgan failure, anoxic brain injury, proceeding to comfort care Coding Level of Care Code Acute Accounts Payable Representative for [facility] Diagnoses Cardiac arrest with ventricular fibrillation I46.9; I49.01 Anoxic brain injury G93.1 Multiorgan failure Acute respiratory failure J96.00 S/P right coronary artery (RCA) stent placement Z95.5 Pneumothorax S27.0XXA Encounter type: initial encounter Pneumothorax type: traumatic Symptomatic bradycardia R00.1 Hyperlipidemia E78.5 Elevated blood sugar R73.9 Depression F32.9 Leukocytosis D72.829 Acidemia E87.2 Acute kidney injury N17.9 Transaminitis R74.0 Lactic acidosis E87.2
--- NOTE | 2020-02-29 14:18 | PC.CHAP ---
Pastoral Care Encounter/Spiritual Assessment Type of Contact [] Declined sales advisory manager visit [x] Patient/Family/Request visit [] Outpatient visit [] Follow-up visit [] Physician referral [] Code/Alert [] Routine visit [] Staff referral [x] Actively dying [] Patient sleeping [x] Family support [] [] Out of room [] Palliative care [] [] Receiving care in room [] Pre-surgical visit [] Trauma [] Long length of stay [x] ICU visit [] Other: Relational/Emotional Strength [] Patient feels connected with others/family/visitors/staff [] Distress [] Loneliness/isolation [] Abandonment Spirituality of Patient [] Person of Marianne [] Attends Roman Catholic of their Marianne [] Believes in Prayer [] Reads Bible or Mormonism materials [] There are Spiritual issues to be addressed Postpartum Nurse Interventions [x] Prayer [x] Active listening [x] Non-anxious presence [x] Spiritual/emotional support [] Crisis/trauma care [] Spiritual counseling [x] Bereavement support [] Provided bereavement packet [] Provided Bible/devotional materials [] Provided toy/stuffed animal, coloring book to patient or family member [] Provided Communion [] Anointing/[place] [] Salvation [] Completed spiritual assessment [] Other: Impact on Illness or Injury [] Angry [] Fearful [] Anxious [] Often cries [] Exhaustion [] Unable to work [] Unable to attend taoist [] Unable to walk/stand [] Unable to read [] Unable to drive [] Unable to eat/drink [] Unable to sleep [] Unable to be with family [] Patient intubated [] Other: Summary time with family, read scriptures and prayed. is person of marianne and had been reading scriptures to patient. Son is also present. Postpartum Nurse will check check back with family later in the day or available upon need or request. Time spent with patient 20 min
--- NOTE | 2020-02-29 17:47 | P.DES_ITS ---
Discharge Providers DDS Date of Admission: 02/27/20 18:14 Date Summary Completed: 02/29/20 Attending Provider at Admission: Pernell Rodriguez MD Time of : 14:54 Attending Provider at Discharge: Pernell Rodriguez MD DS Diagnoses Hospital Diagnoses (1) Cardiac arrest with ventricular fibrillation: (2) Anoxic brain injury: (3) Multiorgan failure: (4) Acute respiratory failure: (5) S/P right coronary artery (RCA) stent placement: (6) Pneumothorax: Qualifiers: Encounter type: initial encounter Pneumothorax type: traumatic Qualified Code(s): S27.0XXA - Traumatic pneumothorax, initial encounter (7) Symptomatic bradycardia: (8) Hyperlipidemia: (9) Elevated blood sugar: (10) Depression: (11) Leukocytosis: (12) Acidemia: (13) Acute kidney injury: (14) Transaminitis: (15) Lactic acidosis: Reason for Visit Reason for Visit: POST CODE Summary Date and Time of : Date of : 02/29/20 Time of : 14:54 Summary: Summary: Fermín Dodson is a 69 year old male with a past medical history of elevated blood sugars, hyperlipidemia, nephropathy, depression who presents to [facility] due to cardiac arrest. Most of the history was obtained by patient's friend Tino [phone] who witnessed the episode, and patient's uli [phone] according to patient's friend Tino, patient lives in [place], currently is having marital problems, there is talk of divorce, every year he visits Tino in [place], patient a few days ago drove from [place], stopping for 1 night, drove to [place], he has been hanging out with Tino. Tino says this morning, Fermín was helping him move some furniture items, move a fridge, they are able to move without any problem, he came back to [facility] place when Fermín started to complain of some anterior chest pain, he thought he might of pulled a muscle while moving the fridge, no shortness of breath, no lightheadedness, no dizziness, no radiation, it subsequently went away, and he thought nothing of it, they hung out the living room, there is nothing out of the ordinary, Tino went into the kitchen, when he heard a thump, he found Fermín on the floor, blue, cyanotic, nonresponsive, he called 911, who instructed him to start CPR Fermín thinks that this might of been between 4 30-5, his not sure exactly when, EMS arrived, where he was found to have V. fib, I was told that CPR was performed for roughly 20 minutes, on arrival he was found to have V. fib, he was shocked a total of 7 times, received epi 5 times, received amiodarone twice, last for sinus bradycardia externally placed and roughly 455 he was breathing on his own for 4 minutes 3 ET tube on arrival, his pH was 7.18, creatinine 1.9, transaminitis, white blood cell count 26.5, glucose 269, initial chest x-ray showed small right apical pneumothorax, patient had a thoracic vent placed by ER physician, Dr. Palma from cardiology was consulted plan is to take the patient to cardiac catheterization lab and plans for temporary pacing. I spoke to patient's , who states that patient does not have any significant cardiac history, no history of strokes, no history of COPD, he does have elevated blood sugars, but no diabetes, he does have nephropathy but no hypertension, no diabetes, his regular physician does a EKG on him yearly which is normal, no history of stress test, no history of cardiac catheterization, does have a family history of CAD in both his parents,, both his parents from CAD and its complications, has a sister in [place]. According to patient's , patient has been quite depressed recently, quite withdrawn, does not do a lot of physical activity, has been complaining of more shortness of breath recently, has been complaining of some left shoulder pain, which he attributed to physical labor related. According to his , no reported chest pain per se, no ER visits for chest pain, no hospitalizations, he quit smoking 20 years ago, smoked for a few years, timeline is unknown, no history of drug use, nothing out of the ordinary for the last few days before he left on his trip. Patient was admitted to [facility] for cardiac arrest, V. fib, return of circulation, sinus bradycardia. Cardiology was consulted, patient was taken emergently to the cardiac catheterization lab, found to have an RCA thrombus, which was stented with 2 drug-eluting stents by Dr. Pink. He also had temporary pacing wires placed by Dr. Pink due to sinus bradycardia. Patient was transferred to the ICU, was intubated by the ER physician, on ventilator, placed on sedation. In addition patient was found to have a right pneumothorax, likely secondary to CPR, had a thoracic vent placed by ER physician, no leak throughout his hospital admission, small pneumothorax remained present on the right side, but there was no significant issues in terms of his ventilation or expansion of the pneumothorax.. Patient at one-point required up to 3 pressors, but it was weaned down to Levophed. Patient was eventually weaned off all pressors, was fluid responsive, was placed on broad-spectrum antibiotics for aspiration pneumonia.In terms of his cardiac function, bedside cardiac ultrasound showed an ejection fraction of 50%, global left ventricular hypokinesis, moderately decreased right ventricular systolic function. Patient did initially have evidence of multiorgan failure, however his renal function improved, had reasonable urine output. In terms of his transaminitis, liver function remained stable. The biggest concern throughout his hospital admission was concerns for anoxic brain injury. 48 hours after patient's cardiac arrest, patient did not withdraw from pain, did not respond to stimulus off sedation, tended to look down, pupils were fixed nonresponsive. Patient's family, including his Uma was advised that his likelihood of meaningful recovery was fairly unlikely. He has suffered significant anoxic brain injury. After discussion with patient's family, patient's family pursued comfort care, advised of the risks and benefits, voiced understanding, all questions answered. Proceeded comfort care. Comfort care was initiated. Patient 02/29/2020 at 2:54 PM. Additional Data: Confirmation of as documented by pronouncing clinician: no pulse and no respirations Family: at bedside Additional persons at bedside: nursing staff Attending/PCP notified?: Attending notified Discharge Plan Discharge Patient Disposition: Condition: Stable Prescriptions: No Action No Known Home Medications RF: 0 DS Attestations Time Spent in /Discharge Care*: greater than 30 min Quality - AMI: AMI present?: Yes Quality - Stroke: CVA present?: No Symptom Onset Unknown: No Quality - VTE: VTE present?: No Deep Vein Thrombosis/Pulmonary Embolism Present on Admission: No Coding Level of Care Code 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
--- NOTE | 2020-02-29 18:05 | PC.NURSE ---
and son chose to withdraw care, change code status to DNR, and place pt on comfort measures only after speaking with Dr. Rodriguez and Dr. Reynolds during morning rounds. Pt terminally extubated at 11:40am. Morphine and Ativan given per orders; see MAR. Pt displayed agonal and loud, snoring respirations immediately upon extubation. Nasal cannula applied at 2L/min. Emotional support provided to family, as well as some education on the dying process. All questions answered. Pt at 14:55 with family present. Post mortem care provided. All lines pulled. Saline drops and ice pack applied to eyes; head of bed elevated. Notified Dr. Rodriguez at 14:55 of pt expiration. Notified [facility] at 15:16 of time of . Family wishes to have pt taken to [facility], [address] [place] [id number], phone number [phone], to be cremated and then buried in [place] with the assistance of [place] burial benefits. Spoke with home at 17:00, but still waiting to hear back from [facility] about tissue donation. As of 18:00 [facility] has yet to reach out to family, but they will let nursing staff know what the family decided. Pt will be moved to the [facility] in the meantime.
--- NOTE | 2020-02-29 18:18 | P.PN_ITS ---
Subjective Subjective: Interval history: Patient was seen in the early afternoon and I performed a neurologic exam, took a history from his and talked with her at some length about prognosis. I reviewed his exam with her. Vitals/I&O/Wt Last Vital Signs Temp 98.5 F 02/29/20 07:00 Pulse 117 H 02/29/20 10:30 Resp 20 H 02/29/20 11:15 BP 115/63 02/29/20 10:30 Pulse Ox 94 02/29/20 10:30 02/29/20 02/29/20 02/29/20 06:59 14:59 22:59 Intake Total 160.647 / 2513.113 1030.741 / 1030.741 Output Total 300 / 1000 Balance -139.353 / 4760.254 7473.741 / 1030.741 Physical Exam Narrative: EXAM NARRATIVE: He was lying quietly in the ICU bed, intubated. There was no response to voice. At rest his eyes were in mid position with 3 mm pupils that were sluggishly reactive. With the room lights dimmed he developed pontine pupils, tiny nonreactive but his eyes remained in mid position. When the room lights were turned back up and I attempted to check for oculocephalic movements, he developed left gaze deviation and the left pupil became large and unreactive for approximately 30 seconds. His eyes return to mid position. He did not have full oculocephalic movements and I could not get his eyes to move to the right. Corneal reflex was sluggish on the right, brisk on the left. There was no response to deep nailbed pressure in any of the 4 extremities. Urinary Catheter Management^: River: Cath Placed During This Visit: yes Reason for Continuing Indwelling Catheter: Accurate Measurement of Urinary Output in Critically Ill Patients Urinary Catheter Date of Insertion: 02/27/20 Urinary Catheter Time of Insertion: 17:32 Data : 02/29/20 04:40 02/29/20 04:40 Micro: Microbiology 02/27/20 17:52 Gram Stain - Final Sputum - Endotracheal Tube Aspirate Sputum Culture - Preliminary 02/28/20 12:45 MRSA Culture - Final Nose 02/28/20 09:25 Blood Culture - Preliminary Blood NEGATIVE TO DATE 02/28/20 09:21 Blood Culture - Preliminary Blood NEGATIVE TO DATE A&P Assessment and plan (1) Brain anoxia: I took time to talk with the patient's and son about the severity of his brain injury and the extreme unlikelihood that he would regain meaningful neurologic function. I took time to answer questions. I reviewed the importance of each item of the neurologic exam including the lack of response to pain. I recommended withdrawing plan for resuscitation and advised that in my opinion, the patient is unlikely to survive for more than a few more hours despite maximum support, as he appears to be in the process of herniating. His showed good understanding. Life support was withdrawn later in the afternoon and the patient peacefully. Status: Acute Attestations Medical Necessity Statement*: Post anoxic encephalopathy, profound with cardiogenic shock. 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
--- NOTE | 2020-03-01 03:14 | PC.NURSE ---
Pt transported to [facility] at this time.
== END 2020-02-29 14:55 | disposition expired | DRG 246 ==
LOC: ER 18:10 → ICU 18:14
PROVIDERS: Hospitalist; Internal Medicine Cardiovascular Disease; Admitting Provider Family Medicine; Emergency Provider Emergency Medicine; Visit Provider Family Medicine
PROC: 027135Z Dilation of Coronary Artery, Two Arteries with Two Drug-eluting Intraluminal Devices, Percutaneous Approach (ICD-10-PCS; principal; 2020-02-27 17:00)
PROC: 027135Z Dilation of Coronary Artery, Two Arteries with Two Drug-eluting Intraluminal Devices, Percutaneous Approach (ICD-10-PCS; 2020-02-27 17:00)
PROC: 027135Z Dilation of Coronary Artery, Two Arteries with Two Drug-eluting Intraluminal Devices, Percutaneous Approach (ICD-10-PCS; 2020-02-27 17:00)
DX: I46.9 Cardiac arrest, cause unspecified (principal); J96.00 Acute respiratory failure, unspecified whether with hypoxia or hypercapnia; G93.1 Anoxic brain damage, not elsewhere classified; N17.9 Acute kidney failure, unspecified; E87.2 Acidosis; S27.0XXA Traumatic pneumothorax, initial encounter; R00.1 Bradycardia, unspecified; E78.5 Hyperlipidemia, unspecified; F32.9 Major depressive disorder, single episode, unspecified; R57.0 Cardiogenic shock; I49.01 Ventricular fibrillation; R73.9 Hyperglycemia, unspecified; N28.9 Disorder of kidney and ureter, unspecified; Z87.891 Personal history of nicotine dependence
CPT/HCPCS: 12345; 33210; 36415; 36416; 36592; 36600; 51702; 70450; 71045; 71046; 80051; 80053; 80061; 82533; 82803; 82810; 82962; 83036; 83605; 83735; 83880; 83986; 84100; 84145; 84443; 84484; 85025; 85610; 85651; 85730; 86140; 87040; 87070; 87205; 87641; 93005; 93308; 93454; 94002; 94003; 94799; 96372; 96375; 99283; C1725; C1769; C1779; C1874; C1887; C1894; C9113; C9600; J1644; J1815; J1940; J1953; J2060; J2270; J2543; J2704; J3010; J3246; J3475; J3490; J7030; J7040; J7050; Q9967